=== PATIENT | male | born 1935 | race Caucasian/White ===

== ENCOUNTER → 2016-09-03 10:35 | Day surgery (SDC) | payer MEDICARE ==
[~2016-09-03 10:35] MED LIST: Buffered Lidocaine 1% SYR 3ML* 3 ML/SYR SYRINGE INTRADERM ONE; Bupivacaine 0.5% SDV PF* 30 ML VIAL ONE; Lidocaine 1% INJ* 10 MG/ML 30 ML SDV ONE; NS 0.9% 1000 ML* 1,000 ML IV SCH
[2016-09-03 13:26] VITALS: BP 140/71
--- NOTE | 2016-09-03 21:06 | OP ---
DATE OF OPERATION: 09/03/16 [facility] DATE OF : 35 SURGEON: Luis Alfredo Fajardo DPM FISHING TOOL OPERATOR: None. ANESTHESIOLOGIST: Dr. Gr ANESTHESIA: Local anesthesia. 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 OPERATIVE PROCEDURE: Amputation, third right toe. PATHOLOGY: Amputated third right toe and proximal wound cultures, aerobic and anaerobic. HEMOSTASIS: None. ESTIMATED BLOOD LOSS: Approximately 20 cc. INDICATIONS: The patient with chronic third right hammertoe with chronic ulceration with probing to bone and recent bone scan demonstrating finding consistent with osteomyelitis of the distal third right toe. The patient has numerous health concerns and amputation is advised at this time to limit the potential spread of systemic involvement in the minimized need or exposure to further intravenous antibiotics. DESCRIPTION OF PROCEDURE: The patient was brought to the operating room and left on the wheeled cart. He was prepped and draped in standard fashion. A 10 cc of 1:1 mixture of 1% lidocaine plain and 0.5% Marcaine plain were infiltrated at the base of the digit. After assuring adequate anesthesia, two semi-elliptical incisions were made on the circumference of the base of the third right toe and dissection was carried down to deep fascia and the base of the digit. The deep fascia and tendon structures were incised and a straight bone cutter was used to resect the digit. A small rongeur was used to resect any sharp rough areas. The area was flushed with copious amounts of normal sterile saline and proximal wound cultures aerobic and anaerobic were obtained. It should be noted there was no evidence of any significant devitalized or infectious tissue or purulence. The tissue was bleeding and pink and healthy appearing. A 4-0 Polysorb was used to reapproximate some of the wound and using 5-0 and 4-0 nylon, the skin was reapproximated and secured. The surgical site was dressed with Xeroform gauge and a light bulky sterile dressing consisting of 4x4 gauge, an ABD pad, Haley and Kerlix. Secured with Coban. He appeared to tolerate the procedure and anesthesia well. The patient was transported via cart to Recovery in satisfactory condition. It should be noted prior to applying the bandage, cap refill remained less than 5 seconds to the remaining digits of the right foot. [id number]/[facility] #: [id number] MTDD
== END | disposition home or self-care (01) ==
LOC: OREAST 10:35
PROVIDERS: ATTEND Podiatrist Foot Surgery
DX: M86.671 Other chronic osteomyelitis, right ankle and foot (principal); I70.209 Unspecified atherosclerosis of native arteries of extremities, unspecified extremity; I10 Essential (primary) hypertension; J43.9 Emphysema, unspecified; E11.42 Type 2 diabetes mellitus with diabetic polyneuropathy; Z79.4 Long term (current) use of insulin
CPT/HCPCS: 87070; 87073; 87205; 88305; 88311

== ENCOUNTER 2018-11-21 13:11 | Emergency (ER) | payer MEDICARE ==
--- OUTSIDE RECORDS SUMMARY | 2018-11-21 13:16 | XMS REPORT | Continuity of Care Document ---
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 Family History Date Family Member(s) Observation Comments General Heart Disease General Hypertension General Stroke Social History Type Date Description Comments Sex Unknown Lives With Spouse Cigarette Use Quit 25 Years Ago Tobacco Use Start: Unknown Never Smoked Cigars Tobacco Use Start: Unknown Never Smoked A Pipe Smoking Status Reviewed: 10/24/18 Never Smoked A Pipe Smokeless Tobacco Former Smokeless Tobacco User, Used Occasionally Smokeless Tobacco Quit 25 Years Ago ETOH Use Denies alcohol use Allergies, Adverse Reactions, Alerts Description No Known Drug Allergies Medications Medication Date Status Form Strength Qnty SIG Indications Ordering Provider Kinsey 10/21/ Active Tablets 5-325mg 20tab 1 tab Fatuma 2019 s by bessy Abdi M.DMariela q6 hours as needed pain Keflex 10/21/ Active Capsules 500mg 28cap take 1 Lalo 2019 s tab by Jackie mouth 4 MD times a day x 7 days until finishe d. Diflucan 11/24/ Active Tablets 100mg 14tab 1 every K13.21 [facility] 2015 day x Ruparelia, 14days. M.D. Amlodipine Besylate / Active Tablets 5mg Nicholas, MD Richard Hydrochlorothiazide / Active Capsules 12.5mg McClintic, 0000 Júnior Bhat MD Simvastatin / Active Tablets 20mg Nicholas, MD Richard Enalapril Maleate / Active Tablets 20mg Nicholas, MD Richard Allopurinol / Active Tablets 300mg Nicholas, MD Richard Sotalol HCL / Active Tablets 80mg Romanyshyn 0000 Jenny, RETAIL MERCHANDISER Albuterol Sulfate / Active Powder puff Unknown 0000 every 6 hours as needed Vicodin / Active Tablets 5-500mg 1 every Unknown 0000 4-6 hours as needed Advair Diskus / Active Aerosol 1 puff Unknown 0000 by mouth twice a day Furosemide / Active Tablets 1 by Unknown 0000 mouth every day Eliquis / Active Tablets 2.5mg 1 tab Unknown 0000 by mouth every 12 hours for 30 days Immunizations Description No Information Available Vital Signs Date Vital Result Comment 10/24/2018 1:17pm Height 72 inches 6'0" Heart Rate 72 /min Respiratory Rate 20 /min Body Temperature 97.4 F Pain Level 7 11/25/2015 2:11pm Height 72 inches 6'0" Weight 269.00 lb Heart Rate 80 /min BP Systolic Sitting 128 mmHg BP Diastolic Sitting 88 mmHg BMI (Body Mass Index) 36.5 kg/m2 Results Test Date Facility Test Result H/L Range Note Laboratory test 11/25/2015 [facility] Fungal Cult SEE RESULT [address] [place] [address] [phone] 1 SEE RESULT BELOW Name: DAVID BAXTER : [address]: Miguel Angel Salvador MD Acct: [id number] Unit: [id number] AGE: 80 Location: [facility] Re11/25/15 SEX: M Status: REG REF SPEC: [id number] JUAN DAVID: 11/25/15-[address]: Miguel Angel Salvador MD REQ: [id number] RECD: 11/25/15 STATUS: COMP _ SOURCE: [facility] SPDESC: ORDERED: Fungal - Other Procedure Result Reported Site Fungal Cult - Other Sources Final 12/23/15- 1049 ML Organism 1 BECKY PARAPSILOSIS * ML - MAIN LAB ([facility]) . END OF REPORT * ML=Testing performed at Main Lab DEPARTMENT OF PATHOLOGY, [address] [place] [address] Gigi Sandy M.D. Director [facility] # [id number] Procedures Date Code Description Status 01/13/2016 01051 Laparoscopy Cholecystectomy Completed 01/10/2016 29807 ECHO Transthorasic Realtime 2D W Doppler & Color Flow Hosp Completed 11/25/2015 28142 Injection Intralesional Up To And Including 7 Lesions Completed Encounters Type Date Location Provider Dx Diagnosis Office Visit 08/05/2016 [facility] Hardeep Stapleton M86.9 Osteomyelitis, 9:53a fox Boogie M.D. 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 circulatory system Office Visit 08/04/2016 9:53a [facility] Hardeep Stapleton M86.9 Osteomyelitis, fox Boogie M.D. 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 unspecified Hospitalists I50.9 Heart failure, unspecified E11.8 Type 2 diabetes mellitus with unspecified complications I10 Essential (primary) hypertension Office Visit 01/14/2016 [facility] Lili Guerrero, K81.9 Cholecystitis, 9:45a Assoc,pc N.P. unspecified Hospitalists I50.9 Heart failure, unspecified E11.8 Type 2 diabetes mellitus with unspecified complications I10 Essential (primary) hypertension Office Visit 01/13/2016 [facility] Lili Guerrero, K81.9 Cholecystitis, 9:44a Assoc,pc N.P. unspecified Hospitalists I50.9 Heart failure, unspecified E11.8 Type 2 diabetes mellitus with unspecified complications I10 Essential (primary) hypertension Office Visit 01/12/2016 [facility] Jose K81.9 Cholecystitis, 9:43a Assoc,pc Julian, N.P. unspecified Hospitalists I50.9 Heart failure, unspecified E11.8 Type 2 diabetes mellitus with unspecified complications I10 Essential (primary) hypertension Office Visit 01/11/2016 [facility] Angie K81.9 Cholecystitis, 9:43a Assoc,fox Hutton, DANAE unspecified Hospitalists I50.9 Heart failure, unspecified E11.8 Type 2 diabetes mellitus with unspecified complications I10 Essential (primary) hypertension Office Visit 01/10/2016 12:39p [place] Dorinda Sy R10.13 Epigastric pain Assoc,LINDA Santos Hospitalists R06.02 Shortness of breath Office Visit 01/10/2016 [place] Silviodaysibarbie GarciaMariela Z01.810 Encounter for 3:16p Cardiology Bharath Mcclure preprocedural cardiovascular examination K81.9 Cholecystitis, unspecified I25.10 [facility] heart disease of [place] coronary artery w/o ang pctrs I47.2 Ventricular tachycardia I48.0 Paroxysmal atrial fibrillation Office Visit 01/10/2016 [facility] K81.9 Cholecystitis, 9:42a Assoc,fox Hutton, RETAIL MERCHANDISER unspecified Hospitalists I50.9 Heart failure, unspecified E11.8 Type 2 diabetes mellitus with unspecified complications I10 Essential (primary) hypertension Office Visit 11/25/2015 2:15p [facility] K13.21 Leukoplakia of [facility] AT Bharath Salvador oral mucosa, Ronald including tongue Plan of Treatment Future Appointment(s):11/02/2018 1:45 pm - Fatuma Abdi M.D. at [facility]10/24/2018 - Lalo Mejia, [id number] Other fractures of lower end of left radius, initial encountFollow up:Follow up: Dr. Abdi in 1 week
--- OUTSIDE RECORDS SUMMARY | 2018-11-21 13:16 | XMS REPORT | Continuity of Care Document ---
:1935 External Reference #:[id number] Author Name Gill Hernandez Care Team Providers Name Role Phone Richard Peterson MD Primary Care Physician Unavailable Payers Date Identification Numbers Payment Provider Subscriber Effective: 2000 Policy Number: [id number] Medicare David Baxter PayID: [id number] [address] [place] [address] Policy Number: [id number] [facility] David Baxter PayID: [id number] [address] [place] [address] Advance Directives Description No Information Available Problems Date Description Provider Status Onset: 11/25/2015 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 Family History Date Family Member(s) Observation Comments General Heart Disease General Hypertension General Stroke Social History Type Date Description Comments Sex Unknown Lives With Spouse Occupation Retired Cigarette Use Quit 25 Years Ago Tobacco Use Start: Unknown Never Smoked Cigars Tobacco Use Start: Unknown Never Smoked A Pipe Smokeless Tobacco Former Smokeless Tobacco User, Used Occasionally Smokeless Tobacco Quit 25 Years Ago ETOH Use Denies alcohol use Tobacco Use Start: Unknown End: Patient is a former smoker Unknown Smoking Status Reviewed: 11/02/18 Patient is a former smoker Exercise Type/Frequency Exercises rarely Allergies, Adverse Reactions, Alerts Description No Known Drug Allergies Medications Medication Date Status Form Strength Qnty SIG Indications Ordering Provider [place] 10/21/ Active Tablets 5-325mg 20tab 1 tab Fatuma 2019 s by bessy Abdi M.D. q6 hours as needed pain Keflex 10/21/ Active Capsules 500mg 28cap take 1 Lalo 2019 s tab by Jackie, mouth 4 MD times a day x 7 days until finishe d. Amlodipine Besylate / Active Tablets 5mg Nicholas, 0000 MD Richard Hydrochlorothiazide / Active Capsules 12.5mg McClintic, 0000 Júnior Bhat MD Simvastatin / Active Tablets 20mg Nicholas, 0000 MD Richard Enalapril Maleate / Active Tablets 20mg Nicholas, 0000 MD Richard Allopurinol / Active Tablets 300mg Nicholas, 0000 MD Richard Sotalol HCL / Active Tablets 80mg Romanyshyn 0000 Jenny NP Albuterol Sulfate / Active Powder puff Unknown 0000 every 6 hours as needed Advair Diskus / Active Aerosol 1 puff Unknown 0000 by mouth twice a day Furosemide / Active Tablets 1 by Unknown 0000 mouth every day Eliquis / Active Tablets 2.5mg 1 tab Unknown 0000 by mouth every 12 hours for 30 days Diflucan 11/24/ Hx Tablets 100mg 14tab 1 every K13.21 Miguel Angel 2015 - day x Ruparelia, days. M.D. 2019 Vicodin / Hx Tablets 5-500mg 1 every Unknown 0000 - 4-6 2018 as needed Immunizations Description No Information Available Vital Signs Date Vital Result Comment 11/02/2018 2:01pm Height 72 inches 6'0" Weight 183.00 lb BP Systolic 122 mmHg BP Diastolic 84 mmHg Body Temperature 96.8 F Pain Level 5 BMI (Body Mass Index) 24.8 kg/m2 10/24/2018 1:17pm Height 72 inches 6'0" Heart Rate 72 /min Respiratory Rate 20 /min Body Temperature 97.4 F Pain Level 7 11/25/2015 2:11pm Height 72 inches 6'0" Weight 269.00 lb Heart Rate 80 /min BP Systolic Sitting 128 mmHg BP Diastolic Sitting 88 mmHg BMI (Body Mass Index) 36.5 kg/m2 Results Test Date Facility Test Result H/L Range Note Laboratory test 11/25/2015 [facility] Fungal Cult SEE RESULT [address] [place] [address] [phone] 1 SEE RESULT BELOW Name: DAVID BAXTER : [address]: Miguel Angel Salvador MD Acct: [id number] Unit: [id number] AGE: 80 Location: [facility] Re11/25/15 SEX: M Status: REG REF SPEC: [id number] JUAN DAVID: 11/25/15-[address] [facility] [address]: Miguel Angel Salvador MD REQ: [id number] RECD: 11/25/15 STATUS: COMP _ SOURCE: [facility] SPDESC: ORDERED: Fungal - Other Procedure Result Reported Site Fungal Cult - Other Sources Final 12/23/15- 1049 ML Organism 1 BECKY PARAPSILOSIS * ML - MAIN LAB ([facility]) . END OF REPORT * ML=Testing performed at Main Lab DEPARTMENT OF PATHOLOGY, [address] [place] [address] Gigi Sandy M.D. Director [facility] # [id number] Procedures Date Code Description Status 10/24/2018 78312 Short Arm Splint Application Completed 10/21/2018 48270 FX Radial Shaft Open TX W/Wo Fixation Completed 10/21/2018 49998 FX Radial Shaft Open TX W/Wo Fixation Completed 01/13/2016 08878 Laparoscopy Cholecystectomy Completed 01/10/2016 27486 ECHO Transthorasic Realtime 2D W Doppler & Color Flow Hosp Completed 11/25/2015 51303 Injection Intralesional Up To And Including 7 Lesions Completed Encounters Type Date Location Provider Dx Diagnosis Office Visit 08/05/2016 [facility] Hardeep Stapleton, M86.9 Osteomyelitis, 9:53a fox Boogie M.D. 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 circulatory system Office Visit 08/04/2016 9:53a [facility] Sunny Edwards86.9 Osteomyelitis, Assocfox M.D. 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, unspecified Office Visit 08/03/2016 [facility] Rashaun Webster M86.9 Osteomyelitis, 9:51a Assoc,fox Quinteros, unspecified Hospitalists Bharath,FACP R19.7 Diarrhea, unspecified R13.10 Dysphagia, unspecified Office Visit 08/03/2016 7:00a Surgical Shyannenora Luna L97.514 Non-prs chronic [facility] Goyal MD ulcer oth prt right foot w necrosis of bone L03.031 Cellulitis of right toe I73.9 Peripheral vascular disease, unspecified Office Visit 08/02/2016 [facility] Rashaun Webster M86.9 Osteomyelitis, 9:49a Assoc,fox Quinteros, unspecified Hospitalists M.DMariela,FACP M86.9 Osteomyelitis, unspecified R19.7 Diarrhea, unspecified R19.7 Diarrhea, unspecified 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 N17.9 Acute kidney 9:48a Assocfox M.D. 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 unspecified Hospitalists I50.9 Heart failure, unspecified E11.8 Type 2 diabetes mellitus with unspecified complications I10 Essential (primary) hypertension Office Visit 01/14/2016 [facility] Lili Guerrero, K81.9 Cholecystitis, 9:45a Assoc,pc N.P. unspecified Hospitalists I50.9 Heart failure, unspecified E11.8 Type 2 diabetes mellitus with unspecified complications I10 Essential (primary) hypertension Office Visit 01/13/2016 [place] Dorinda Guerrero, K81.9 Cholecystitis, 9:44a Assoc,pc N.P. unspecified Hospitalists I50.9 Heart failure, unspecified E11.8 Type 2 diabetes mellitus with unspecified complications I10 Essential (primary) hypertension Office Visit 01/12/2016 [facility] Jose K81.9 Cholecystitis, 9:43a Assoc,pc Julian, N.P. unspecified Hospitalists I50.9 Heart failure, unspecified E11.8 Type 2 diabetes mellitus with unspecified complications I10 Essential (primary) hypertension Office Visit 01/11/2016 [facility] K81.9 Cholecystitis, 9:43a Assoc,pc Anni, DANAE unspecified Hospitalists I50.9 Heart failure, unspecified E11.8 Type 2 diabetes mellitus with unspecified complications I10 Essential (primary) hypertension Office Visit 01/10/2016 12:39p [facility] Kerrie R10.13 Epigastric pain Assoc,fox Casper, LINDA Hospitalists R06.02 Shortness of breath Office Visit 01/10/2016 [place] Judy Hdz Z01.810 Encounter for 3:16p Cardiology Bharath Mcclure preprocedural cardiovascular examination K81.9 Cholecystitis, unspecified I25.10 Athscl heart disease of [place] coronary artery w/o ang pctrs I47.2 Ventricular tachycardia I48.0 Paroxysmal atrial fibrillation Office Visit 01/10/2016 [facility] Angie K81.9 Cholecystitis, 9:42a Assoc,fox Hutton NP unspecified Hospitalists I50.9 Heart failure, unspecified E11.8 Type 2 diabetes mellitus with unspecified complications I10 Essential (primary) hypertension Office Visit 11/25/2015 2:15p [facility] K13.21 Leukoplakia of [place] AT Bharath Salvador oral mucosa, [place] including tongue Plan of Treatment Future Appointment(s):11/09/2018 1:15 pm - Fatuma Abdi M.D. at [facility] [place]/02/2018 - Fatuma Abdi M.D.S52.592B Other fractures of lower end of left radius, initial encountNew Xrays:Wrist Left 2 VWS, Ordered: Follow up:Follow up: 1 week
--- OUTSIDE RECORDS SUMMARY | 2018-11-21 13:16 | XMS REPORT | Continuity of Care Document ---
:1935 External Reference #:[id number] Author Name EnrriqueHayeslizzettealexandermariandavid Care Team Providers Name Role Phone Richard Peterson MD Primary Care Physician Unavailable Payers Date Identification Numbers Payment Provider Subscriber Effective: 2000 Policy Number: [id number] Medicare David Baxter PayID: [id number] [address] [place] [address] Policy Number: [id number] [facility] David Baxter PayID: [id number] [address] [place] [address] Advance Directives Description No Information Available Problems [...] a former smoker Unknown Smoking Status Reviewed: 11/09/18 Patient is a former smoker Exercise Type/Frequency Exercises rarely Allergies, Adverse Reactions, Alerts Description No Known Drug Allergies Medications Medication Date Status Form Strength Qnty SIG Indications Ordering Provider Amlodipine Besylate Active Tablets 5mg 1 tab Nicholas, /0000 by MD Richard mouth once daily Simvastatin Active Tablets 20mg 1 tab Nicholas, /0000 by MD Richard mouth once daily Allopurinol Active Tablets 300mg 1 tab Nicholas, /0000 by MD Richard mouth once daily Sotalol HCL Active Tablets 80mg 1 tab Romanyshyn /0000 by , DANAE Alvarado mouth twice daily Albuterol Sulfate Active Powder puff Unknown /0000 every 6 hours as needed Eliquis Active Tablets 2.5mg 1 tab Unknown /0000 by mouth every 12 hours Metoprolol Succinate Active Tablets 50mg 1 tab Nicholas, ER /0000 ER 24HR by MD Richard mouth twice daily [place] 10/21 Hx Tablets 5-325mg 20tab 1 tab Fatuma s by Trinidad - mouth M.D. 11/08 q6 hours as needed pain Keflex 10/21 Hx Capsules 500mg 28cap take 1 Lalo s tab by Mikhail Mejia 4 MD 11/08 times day x 7 days until finishe d. Diflucan 11/24 Hx Tablets 100mg 14tab 1 every K13.21 Miguel Angel s day x [place], - 14days. M.D. 11/02 Hydrochlorothiazide Hx Capsules 12.5mg [place], /0000 Júnior Bhat MD 11/08 Enalapril Maleate Hx Tablets 20mg Nicholas, /0000 MD Richard - 11/08 Vicodin Hx Tablets 5-500mg 1 every Unknown /0000 4-6 - hours 11/02 needed Advair Diskus Hx Aerosol 1 puff Unknown /0000 by - mouth 11/08 twice day Furosemide Hx Tablets 1 by Unknown /0000 mouth - every Immunizations Description No Information Available Vital Signs Date Vital Result Comment 11/09/2018 1:14pm Height 72 inches 6'0" Weight 183.00 lb Heart Rate 74 /min BP Systolic Sitting 110 mmHg BP Diastolic Sitting 86 mmHg Respiratory Rate 18 /min Pain Level 0 BMI (Body Mass Index) 24.8 kg/m2 11/02/2018 2:01pm Height 72 inches 6'0" Weight [...] Result H/L Range Note Laboratory test 11/25/2015 [facility] Fungal Cult SEE RESULT [address] [place] [address] [phone] SEE RESULT BELOW Name: DAVID BAXTER : [address]: Miguel Angel Salvador MD Acct: [id number] Unit: [id number] AGE: 80 Location: [facility] Re11/25/15 SEX: M Status: REG REF SPEC: [id number] JUAN DAVID: 11/25/15-[address] [facility] [address]: Miguel Angel Salvador MD REQ: [id number] RECD: 11/25/15 STATUS: COMP _ SOURCE: AVA EPPS SPDESC: ORDERED: Fungal - Other Procedure Result Reported Site Fungal Cult - Other Sources Final 12/23/15- 1049 ML Organism 1 BECKY PARAPSILOSIS * ML - MAIN LAB (PSC1) . END OF REPORT * ML=Testing performed at Main Lab DEPARTMENT OF PATHOLOGY, [address] [place] [address] Gigi Sandy M.D. Director [facility] # [id number] Procedures Date Code Description Status 10/24/2018 80401 Short Arm Splint Application Completed 10/21/2018 32271 FX Radial Shaft Open TX W/Wo Fixation Completed 10/21/2018 81757 FX Radial Shaft Open TX W/Wo Fixation Completed 01/13/2016 54707 Laparoscopy Cholecystectomy Completed 01/10/2016 31922 ECHO Transthorasic Realtime 2D W Doppler & Color Flow Hosp Completed 11/25/2015 33671 Injection Intralesional Up To And Including 7 Lesions Completed Encounters Type Date Location Provider Dx Diagnosis Office Visit 08/05/2016 [facility] Katty Edwards.9 Osteomyelitis, 9:53a Assocfox M.D. 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 unspecified Hospitalists I50.9 Heart failure, unspecified E11.8 Type 2 diabetes mellitus with unspecified complications I10 Essential (primary) hypertension Office Visit 01/14/2016 [facility] Lili Guerrero, K81.9 Cholecystitis, 9:45a Assoc,pc N.P. unspecified Hospitalists I50.9 Heart failure, unspecified E11.8 Type 2 diabetes mellitus with unspecified complications I10 Essential (primary) hypertension Office Visit 01/13/2016 [facility] Lili Guerrero, K81.9 Cholecystitis, 9:44a Assoc,pc N.P. unspecified Hospitalists I50.9 Heart failure, unspecified E11.8 Type 2 diabetes mellitus with unspecified complications I10 Essential (primary) hypertension Office Visit 01/12/2016 [facility] Jose K81.9 Cholecystitis, 9:43a Assoc,fox Jordan, N.P. unspecified Hospitalists I50.9 Heart failure, unspecified E11.8 Type 2 diabetes mellitus with unspecified complications I10 Essential (primary) hypertension Office Visit 01/11/2016 [facility] K81.9 Cholecystitis, 9:43a Assoc,fox Hutton, SENIOR COMPLIANCE ANALYST unspecified Hospitalists I50.9 Heart failure, unspecified E11.8 Type 2 diabetes mellitus with unspecified complications I10 Essential (primary) hypertension Office Visit 01/10/2016 12:39p [facility] Kerrie R10.13 Epigastric pain Assoc,LINDA Santos Hospitalists R06.02 Shortness of breath Office Visit 01/10/2016 [place] Judy Hdz Z01.810 Encounter for 3:16p Cardiology Bharath Mcclure preprocedural cardiovascular examination K81.9 Cholecystitis, unspecified I25.10 [facility] heart disease of [place] coronary artery w/o ang pctrs I47.2 Ventricular tachycardia I48.0 Paroxysmal atrial fibrillation Office Visit 01/10/2016 [facility] K81.9 Cholecystitis, 9:42a Assoc,fox Hutton, SENIOR COMPLIANCE ANALYST unspecified Hospitalists I50.9 Heart failure, unspecified E11.8 Type 2 diabetes mellitus with unspecified complications I10 Essential (primary) hypertension Office Visit 11/25/2015 2:15p [facility] 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 at [facility]11/09/2018 - Fatuma Abdi M.D.S52.592D Other fractures of lower end of left radius, subsequent encoFollow up:Follow up: 4 weeks
[2018-11-21 13:35] VITALS: BP 103/63
--- NOTE | 2018-11-21 13:58 | UC ---
Dental HPI - HPI Summary HPI Summary: 83-year-old male with history of head and neck cancer presents with and sone complaining of onset of severe jaw pain yesterday. He is a patient of Dr. Juan Schaefer at the [facility] who treated him for the cancer which included removal of his right mandible with reconstruction (2015) as well as radiation therapy which she completed in July 2017. Patient states that he has had a history of bone infections in the jaw in the past and he is scheduled to have a biopsy performed by Dr. Colorado at [facility] on November 28, 2018. States he did take some acetaminophen this morning which did improve the pain. His son states that he has noted some progressively worsening redness and swelling of the chin, right jaw, and neck over the past couple of days. He does have a open wound on the chin but they are concerned is from a screw that may have come loose and is migrating its way out. Patient denies fever, chills, or trismus. - History of Current Complaint Chief Complaint: Lakesha Stated Complaint: JAW PAIN Time Seen by Provider: 11/21/18 13:53 Hx Obtained From: Patient Pain Intensity: 6 - Allergies/Home Medications Allergies/Adverse Reactions: Allergies Allergy/AdvReac Type Severity Reaction Status Date / Time No Known Allergies Allergy Verified 11/21/18 13:35 Home Medications: Home Medications Acetaminophen [Tylenol] 650 mg PO DAILY WITH MEAL 11/21/18 [History Confirmed ] PMH/Surg Hx/FS Hx/Imm Hx Endocrine History: Diabetes, Dyslipidemia Cardiovascular History: Cardiac Disease, Hypertension, Congestive Heart Failure , Atrial Fibrillation Cancer History: Other - Head and neck cancer s/p radiation Tx (last treatment ) - Surgical History Surgical History: Yes Surgery Procedure, Year, and Place: 05/2016 TURP -[facility] [place]. 01/2016 R Mandiblectomy. 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 2012 DEFIBRILLATOR INSERTED, [place]. 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 2010 LASER SURGER OF LEFT PALATE, OFFICE. SKIN CANCER BIOPSY RIGHT FOREARM, OFFICE. BIOPSY RIGHT LEG, OFFICE. DEPUTYRENS CONTRACTURE BILATERAL HANDS, [facility] [place] AND [place]. cholecystectomy, [facility] - Family History Known Family History: Positive: None, Unknown, Cardiac Disease, Hypertension, Diabetes - Social History Occupation: Retired Lives: With Family Alcohol Use: Weekly Alcohol Amount: did have 4 beers on Wednesday after 2 years dry Substance Use Type: None Smoking Status (MU): Former Smoker Have You Smoked in the Last Year: No When Did the Patient Quit Smoking/Using Tobacco: QUIT 35 YEARS AGO Household Exposure Type: Cigarettes - Immunization History Most Recent Influenza Vaccination: fall 2015 Most Recent Tetanus Shot: Up to date Most Recent Pneumonia Vaccination: 15 yrs ago Review of Systems All Other Systems Reviewed And Are Negative: Yes Constitutional: Negative: Fever, Chills Eyes: Negative: Drainage, Eye Redness ENT: Positive: Other - See HPI Respiratory: Negative: Shortness Of Breath, Cough Cardiovascular: Negative: Palpitations, Chest Pain Gastrointestinal: Negative: Abdominal Pain, Vomiting, Nausea Genitourinary: Positive: Negative Musculoskeletal: Positive: Negative Neurological: Positive: Negative Physical Exam - Summary Physical Exam Summary: GENERAL APPEARANCE: Alert, cooperative, chronically ill-appearing older adult male who appears to be in no acute distress. HEAD: Erythema and edema noted to the chin, right mandible, and right anterior neck with increased warmth. Small crusted lesion noted to chin with purulent drainage. EYES: Conjunctiva clear. No drainage. EARS: External auditory canals and tympanic membranes clear, hearing grossly intact. NOSE: No nasal discharge. THROAT: Pharynx normal. Uvula midline. Dry geographic tongue. Dry mucous membranes. Poor dentition with multiple missing teeth and teeth in various degrees of decay. No trismus. NECK: Neck supple. No lymphadenopathy noted. CARDIAC: Normal S1 and S2. No S3, S4 or murmurs. Rhythm is regular. There is no peripheral edema, cyanosis or pallor. Extremities are warm and well perfused. Capillary refill is less than 2 seconds. Peripheral pulses intact. LUNGS: Clear to auscultation without rales, rhonchi, wheezing or diminished breath sounds. ABDOMEN: Positive bowel sounds. Soft, nondistended, nontender. No guarding or rebound. No masses or hepatosplenomegally. MUSKULOSKELETAL: ROM intact to all extremities. No joint erythema or tenderness. Normal muscular development. Normal gait. Triage Information Reviewed: Yes Vital Signs: Initial Vital Signs Temp 98.4 F 11/21/18 13:29 Pulse 105 11/21/18 13:29 Resp 20 11/21/18 13:29 BP 103/63 11/21/18 13:29 Pulse Ox 97 11/21/18 13:29 Vital Signs Reviewed: Yes Dental Complaint Course/Dx - Course Course Of Treatment: 83-year-old male with history of head and neck cancer presents with and sone complaining of onset of severe jaw pain yesterday. He is a patient of Dr. Juan Schaefer at the [facility] who treated him for the cancer which included removal of his right mandible with reconstruction (2015) as well as radiation therapy which she completed in July 2017. Patient states that he has had a history of bone infections in the jaw in the past and he is scheduled to have a biopsy performed by Dr. Colorado at [facility] on November 28, 2018. States he did take some acetaminophen this morning which did improve the pain. His son states that he has noted some progressively worsening redness and swelling of the chin, right jaw, and neck over the past couple of days. He does have a open wound on the chin but they are concerned is from a screw that may have come loose and is migrating its way out. Patient denies fever, chills, or trismus. Afebrile. Mildly tachycardic otherwise vital signs are stable. Exam was remarkable for Erythema and edema noted to the chin, right mandible, and right anterior neck with increased warmth. Small crusted lesion noted to chin with purulent drainage. A culture was obtained and sent. I did not appreciate any cervical lymphadenopathy. No trismus. Patient had extremely poor dentition with multiple teeth in various degrees of decay. I did attempt to contact Dr. Schaefer at the [facility] for consultation however he was in surgery and not able to speak at this time. I did have a conversation with his RN who will be contacting Dr. Schaefer regarding my findings. I also attempted to contact Dr. Colorado to make him aware that the patient was going to be evaluated in the emergency room however he was not available at this time either. With his past history of osteomyelitis of the jaw I am recommending that he be further evaluated in the emergency room at this time. Patient is agreeable to this and elects to transfer via private vehicle with his son driving. - Differential Dx/Diagnosis Provider Diagnosis: Facial cellulitis Discharge - Sign-Out/Discharge Documenting (check all that apply): Patient Departure All imaging exams completed and their final reports reviewed: No Studies - Discharge Plan Condition: Stable Disposition: HOME-RECOMMEND TO ED Referrals: Richard Peterson MD [Primary Care Provider] - Additional Instructions: You appear to have an infection of the face however with your history I am concerned that you need further evaluation to assess the severity of the infection which cannot be completed at this location. I did contact Dr. Schaefer's office however he was in surgery and was not available for consult at this time. I am recommending that you go directly to the [facility] emergency room for further evaluation. - Billing Disposition and Condition Condition: STABLE Disposition: Home-Recommend to ED - Attestation Statements Provider Attestation: I was available for consult. This patient was seen by the [facility]. The patient was not presented to, seen by, or examined by me. -Claudine
== END 2018-11-21 14:50 | disposition home health service (06) ==
LOC: UCEAST 13:11
DX: L03.211 Cellulitis of face (principal); B95.61 Methicillin susceptible Staphylococcus aureus infection as the cause of diseases classified elsewhere; R68.84 Jaw pain; K02.9 Dental caries, unspecified; R00.0 Tachycardia, unspecified; E11.9 Type 2 diabetes mellitus without complications; E78.5 Hyperlipidemia, unspecified; I11.0 Hypertensive heart disease with heart failure; I50.9 Heart failure, unspecified; I48.91 Unspecified atrial fibrillation; Z85.819 Personal history of malignant neoplasm of unspecified site of lip, oral cavity, and pharynx; Z90.49 Acquired absence of other specified parts of digestive tract; Z89.421 Acquired absence of other right toe(s); Z87.891 Personal history of nicotine dependence
CPT/HCPCS: 87070; 87077; 87186; 87205; 87640; 87641; 99212; G0463

== ENCOUNTER 2018-11-21 15:20 | Inpatient (IN) | payer MEDICARE ==
[2018-11-21 17:03] LABS: Hematocrit 38 % (36-46); Hemoglobin 12.6 g/dL (14.0-18.0); Mean Corpuscular HGB Conc 33 g/dL (31-36); Mean Corpuscular Hemoglobin 31 pg (27-31); Mean Corpuscular Volume 94 fL (80-94); Mean Platelet Volume 10.4 fL (7.4-10.4); Platelet Count 139 10^3/uL (150-450); Red Blood Count 4.03 10^6 /uL (4.18-5.48); Red Cell Distribution Width 16 % (10.5-15)
[2018-11-21 17:08] LABS: Albumin 3.8 g/dL (3.2-5.2); Albumin/Globulin Ratio 1.1 (1-3); BUN/Creatinine Ratio 22.6 (8-20); Calcium 9.4 mg/dL (8.6-10.3); EGFR African American 93.9 (>60); EGFR Non-African American 77.6 (>60); Globulin 3.4 g/dL (2-4); Potassium 3.7 mmol/L (3.5-5.0); Total Bilirubin 1.1 mg/dL (0.2-1.0); Total Protein 7.2 g/dL (6.4-8.9)
--- NOTE | 2018-11-21 17:24 | ED ---
Throat Pain/Nasal Congestion - HPI Summary HPI Summary: This pt is an 83 y/o male, with hx of head and neck CA, presenting to [facility] referred by [facility] for jaw pain, redness, and swelling since yesterday. Pt reports he had right mandible reconstruction done in [address] Jonathan Schaefer in [facility]. Pt states his jaw began to "bother" him yesterday and currently his whole face is painful. He notes redness on his neck is new. He currently rates his pain 6/10 in severity. Denies fever. Pt is concerned a screw is becoming loose. Family member reports pt has had infections in his toes in the past but has not had an infection in the jaw. - History of Current Complaint Chief Complaint: EDGeneral Time Seen by Provider: 11/21/18 17:14 Hx Obtained From: Patient Onset/Duration: Lasting Days - 1, Still Present Severity: Severe Associated Signs And Symptoms: Negative: FB Sensation, Hoarseness, Sinus Discomfort, Nasal Discharge Cough: None Related History: Other (Noted In Comments) - s/p right mandible reconstruction in 2016 - Allergies/Home Medications Allergies/Adverse Reactions: Allergies Allergy/AdvReac Type Severity Reaction Status Date / Time No Known Allergies Allergy Verified 11/21/18 13:35 PMH/Surg Hx/FS Hx/Imm Hx Endocrine/Hematology History: Reports: 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 Cardiovascular History: Reports: Hx Auto Implanted Cardiovert Defib, Hx Cardiomegaly - SLIGHTLY ENLARGED, Hx Congestive Heart Failure, Hx Coronary Artery Disease, Hx Hypercholesterolemia, Hx Hypertension, Hx Pacemaker/ICD - ICD , Hx Peripheral Vascular Disease, Other Cardiovascular Problems/Disorders - 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, Hx SVT, paroxysmal A fib Respiratory History: Reports: Hx Chronic Obstructive Pulmonary Disease (COPD), Hx Sleep Apnea, Other Respiratory Problems/Disorders - COPD History: Reports: Hx Benign Prostatic Hyperplasia - TURP 06/08/16, Other Problems/Disorders - Hx Urinary retention Denies: Hx Dialysis, Hx Renal Disease Musculoskeletal History: Reports: Hx Arthritis - BILATERAL KNEES, Hx Scoliosis, Other Musculoskeletal History - CURVATURE OF BACK Sensory History: Reports: Hx Cataracts - BILATERAL- REMOVED, Hx Contacts or Glasses - at home, doesn't use them any more Denies: Hx Hearing Aid Opthamlomology History: Reports: Hx Cataracts - BILATERAL- REMOVED, Hx Contacts or Glasses - at home, doesn't use them any more - Cancer History Cancer Type, Location and Year: Oral cancer- head and neck, Current. skin cancer Hx Chemotherapy: No - RADIATION - Surgical History Surgery Procedure, Year, and Place: 05/2016 TURP -[facility]. 01/2016 R Mandiblectomy. 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 2012 DEFIBRILLATOR INSERTED, [place]. 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 2010 LASER SURGER OF LEFT PALATE, OFFICE. SKIN CANCER BIOPSY RIGHT FOREARM, OFFICE. BIOPSY RIGHT LEG, OFFICE. DEPUTYRENS CONTRACTURE BILATERAL HANDS, [facility] AND [place]. cholecystectomy, CATARACT SURGERY - [facility] Hx Anesthesia Reactions: No Infectious Disease History: No Infectious Disease History: Reports: Hx Shingles - 30 years ago Denies: Traveled Outside the [place] in Last 30 Days - Family History Known Family History: Positive: Cardiac Disease, Hypertension, Diabetes - Social History Alcohol Use: Weekly Alcohol Amount: did have 4 beers on Wednesday after 2 years dry Hx Substance Use: No Substance Use Type: Reports: None Hx Tobacco Use: Yes Smoking Status (MU): Former Smoker Have You Smoked in the Last Year: No Review of Systems Negative: Fever ENT: Other - POS: jaw pain, redness and swelling, face pain Gastrointestinal: Negative Neurological: Negative All Other Systems Reviewed And Are Negative: Yes Physical Exam - Summary Physical Exam Summary: Appearance: Well-appearing, Well-nourished, lying in bed comfortably Skin: Warm, dry, no obvious rash Eyes: sclera anicteric, no conjunctival pallor ENT: postoperative change of the jaw with apparently new swelling and redness. There is purulent drainage at the mentum of the jaw. Swelling adjacent to the neck on the left side with erythema. Neck: Supple, nontender Respiratory: Clear to auscultation, no signs of respiratory distress Cardiovascular: Normal S1, S2. No murmurs. Normal distal pulses in tibial and radial bilaterally. Abdomen: Soft, nontender, normal active bowel sounds present Musculoskeletal: Normal, Strength/ROM Intact Neurological: A&Ox3, awake and alert, mentation is normal, speech is fluent and appropriate Psychiatric: affect is normal, does not appear anxious or depressed Triage Information Reviewed: Yes Vital Signs On Initial Exam: Initial Vitals Temp Pulse Resp BP Pulse Ox 98.6 F 88 17 114/71 97 11/21/18 15:23 11/21/18 15:23 11/21/18 15:23 11/21/18 15:23 11/21/18 15:23 Vital Signs Reviewed: Yes Diagnostics - Vital Signs Vital Signs Temp Pulse Resp BP Pulse Ox 11/21/18 17:18 98.9 F 11/21/18 15:23 98.6 F 88 17 114/71 97 - Laboratory Lab Results: Lab Results 11/21/18 11/21/18 11/21/18 Range/Units 16:42 16:42 16:42 WBC 13.0 H (3.5-10.8) 10^3/uL RBC 4.03 L (4.18-5.48) 10^6 /uL Hgb 12.6 L (14.0-18.0) g/dL Hct 38 (36-46) % MCV 94 (80-94) fL MCH 31 (27-31) pg MCHC 33 (31-36) g/dL RDW 16 H (10.5-15) % Plt Count 139 L (150-450) 10^3/uL MPV 10.4 (7.4-10.4) fL Neut % (Auto) Pending Lymph % (Auto) Pending Bryan % (Auto) Pending Eos % (Auto) Pending Baso % (Auto) Pending Absolute Neuts (auto) Pending Absolute Lymphs (auto) Pending Absolute Monos (auto) Pending Absolute Eos (auto) Pending Absolute Basos (auto) Pending Absolute Nucleated RBC Pending Nucleated RBC % Pending Sodium 135 (135-145) mmol/L Potassium 3.7 (3.5-5.0) mmol/L Chloride 102 (101-111) mmol/L Carbon Dioxide 27 (22-32) mmol/L Anion Gap 6 (2-11) mmol/L BUN 21 (6-24) mg/dL Creatinine 0.93 (0.67-1.17) mg/dL Est GFR ( Amer) 93.9 (>60) Est GFR (Non-Af Amer) 77.6 (>60) BUN/Creatinine Ratio 22.6 H (8-20) Glucose 127 H (70-100) mg/dL Lactic Acid 1.5 (0.5-2.0) mmol/L Calcium 9.4 (8.6-10.3) mg/dL Total Bilirubin 1.10 H (0.2-1.0) mg/dL AST 15 (13-39) U/L ALT 8 (7-52) U/L Alkaline Phosphatase 72 (34-104) U/L C-Reactive Protein Pending Total Protein 7.2 (6.4-8.9) g/dL Albumin 3.8 (3.2-5.2) g/dL Globulin 3.4 (2-4) g/dL Albumin/Globulin Ratio 1.1 (1-3) Result Diagrams: 11/22/18 06:04 11/22/18 06:04 Lab Statement: Any lab studies that have been ordered have been reviewed, and results considered in the medical decision making process. - CT Neck CT CT Interpretation Completed By: Radiologist Summary of CT Findings: IMPRESSION: 1. Chronic unchanged erosive changes along the medial surgical margin of the parasymphyseal mandible, which could reflect locally recurrent neoplasm versus osteonecrosis. 2. New subcutaneous soft tissue stranding and thickening overlying the right mandibular hardware. Findings could reflect cellulitis. No adjacent drainable fluid collection identified. 3. Multiple nodular opacities in the partially visualized right lung, largest measuring 0.7 cm. Nonspecific ground glass attenuation of the partially visualized lingula. Correlate with dedicated chest imaging. Dr. Kolb has reviewed this report. EENT Course/Dx - Course Assessment/Plan: Pt is an 83 y/o male, with hx of head and neck CA, who presents to the ED c/o jaw pain, redness, and swelling since yesterday. Pt reports he had right mandible reconstruction done in [address] Jonathan Schaefer in [facility]. Neck CT shows 1. Chronic unchanged erosive changes along the medial surgical margin of the parasymphyseal mandible, which could reflect locally recurrent neoplasm versus osteonecrosis. In the ED course the pt was given Vancomycin, Cefepime, Percocet. 2. New subcutaneous soft tissue stranding and thickening overlying the right mandibular hardware. Findings could reflect cellulitis. No adjacent drainable fluid collection identified. 3. Multiple nodular opacities in the partially visualized right lung, largest measuring 0.7 cm. Nonspecific ground glass attenuation of the partially visualized lingula. Correlate with dedicated chest imaging. Discussed the case with Dr. Jonathan Schaefer, surgical oncologist, from [facility]. Discussed with Dr. Paul, hospitalist, who accepted the pt for admission. - Differential Diagnoses Differential Diagnoses: Cellulitis, Odontogenic Pain, Other - osteomyelitis of mandible - Diagnoses Provider Diagnoses: Head and neck cancer, Acute osteomyelitis of mandible - Provider Notifications Discussed Care Of Patient With: Dr. Juan Schaefer Time Discussed With Above Provider: 17:57 Instructed by Provider To: Other - Discussed pt's case wtih Dr. Schaefer, from [facility]. [19:16] Discussed with Dr. Paul, hospitalist, who accepted the pt for admission. Discharge - Sign-Out/Discharge Documenting (check all that apply): Patient Departure - Admit to [facility] All imaging exams completed and their final reports reviewed: Yes Patient Received Moderate/Deep Sedation with Procedure: No - Discharge Plan Condition: Stable Disposition: ADMITTED TO [facility] - Billing Disposition and Condition Condition: STABLE Disposition: Admitted to [facility] - Attestation Statements Document Initiated by Rositae: Yes Documenting Scribe: Allyson Perkins Provider For Whom Scribe is Documenting (Include Credential): Juaquin Kolb MD Scribe Attestation: Allyson Parry, scribed for Juaquin Kolb MD on 11/22/18 at 1415. Scribe Documentation Reviewed: Yes Provider Attestation: The documentation as recorded by the Allyson fong accurately reflects the service I personally performed and the decisions made by Juaquin jaimes MD Status of Scribe Document: Viewed
[2018-11-21 17:34] LABS: C Reactive Protein 90.76 mg/L (<8.01)
[2018-11-21 17:37] LABS: ABS Basophils 0 10^3/ul (0-0.2); ABS Eosinophils 0 10^3/ul (0-0.6); ABS Lymphocytes 0.6 10^3/ul (1.0-4.8); ABS Monocytes 1.9 10^3/ul (0-0.8); ABS Neutrophils 10.5 10^3/ul (1.5-7.7); ABS Nucleated RBC 0 10^3/ul; Eosinophil % 0.3 %; Lymphocyte % 4.3 %; Nucleated Red Blood Cells % 0
[2018-11-21] MEDS ORDERED: Iohexol 300* (CONTRAST) 10 ML SDV IV ONE (17:44)
[2018-11-21] MEDS ORDERED: Cefepime(*) 1 GM in NS 0.9% 50 ML* 50 ML IVPB ONE (18:04)
[2018-11-21] MEDS ORDERED: Vancomycin(*) 1,500 MG in NS 0.9% 250 ML* 250 ML IVPB ONE (18:04)
[2018-11-21] MEDS ORDERED: Cefepime 1 GM in Dextrose(*) 1 GM/50 ML BAG IV ONE (18:15)
[2018-11-21] MEDS ORDERED: oxyCODONE/Acetamin 5/325 MG* TAB PO ONE (19:30)
[2018-11-21] MEDS ORDERED: Albuterol/Ipratropium NEB.SOL* Albuterol 2.5 MG/Ipratropium 0.5 MG 3 ML INH PRN (19:53)
[2018-11-21] MEDS ORDERED: Ondansetron INJ* 2 MG/ML VIAL IV PRN (19:56)
[2018-11-21] MEDS ORDERED: Vancomycin per Pharmacy* NOTE FOLLOW UP SCH (20:00)
[2018-11-21] MEDS ORDERED: Dextrose 50% Syringe 50 ML* 25 GM/50 ML SYRINGE IV PUSH PRN (20:12)
[2018-11-21] MEDS ORDERED: Acetaminophen TAB* 325 MG PO ONE (21:35)
--- NOTE | 2018-11-21 22:05 | HP ---
HISTORY AND PHYSICAL: DATE OF ADMISSION: 11/21/18 PRIMARY CARE PROVIDER: Dr. Peterson. WOOD GOUGER: The patient's daughter CODE STATUS: Full. CHIEF COMPLAINT: Facial swelling. REASON FOR ADMISSION: Cellulitis. SOURCE OF INFORMATION: HPI is obtained from the patient, who is an excellent historian. HISTORY OF PRESENT ILLNESS: 83-year-old male with a past medical history of oral cancer, status post excision of soft palate and muscle flap in 2016, followed by Dr. Juan Schaefer at [facility] in [place]; also with non- insulin-dependent diabetes; PVD; AFib, on anticoagulation; CAD; HFrEF 40%; hyperlipidemia; DARIUS, not on CPAP; who is presenting to the emergency room this evening from urgent care for right-sided facial pain, jaw and chin pain, redness , and swelling for 1 day. He does have the above past surgical history and is followed by Dr. Schaefer, whom he reached out to today and advised him to seek care at urgent care. At urgent care, they felt that his presentation is very concerning for cellulitis and given his known hardware, referred him to the emergency room where he presents today. He does report that his jaw became painful and swollen, started yesterday, and that the skin around his chin became noticeably redder over the past 24 hours. He has never had a complication like this in the past. In the emergency room, again surgery team at [place] was called and they report that they did not have a bed, but they did recommend that the patient be admitted for IV antibiotics and continue to monitor, if needing surgical manipulation to transfer the patient. ROS: Positive for facial pain and swelling, denies fevers or chills, difficulty swallowing, on a soft diet at baseline. Emergency room course in the ER: Temperature is 97.2, heart rate 88, 97% on room air, blood pressure 103/63. Labs show leukocytosis to 13, CMP unremarkable , and CRP elevated at 90. CT of the neck shows stranding around the right mandible hardware with no clear collection. The hospitalist team was asked to evaluate the patient and admit for IV antibiotics as well as monitoring, evaluation of cellulitis of chin and mandible overlying the skin and soft tissue. PAST MEDICAL HISTORY: Oral cancer, status post excision of soft palate and muscle flap in 2016, followed at [place]; atu-jntijic-qxflluhib diabetes; PVD; AFib; CAD; heart failure with reduction ejection fraction of 35% to 40%; history of V-tach; hyperlipidemia; hypertension; DARIUS, not on CPAP; BPH. PAST SURGICAL HISTORY: Second right toe amputation, he had defibrillator placed and then replaced, soft palate oral surgery in 2016, and bilateral hand surgeries. MEDICATIONS: 1. Acetaminophen 650 mg p.o. daily. p.r.n. for pain. 2. Albuterol/ipratropium nebulizers 1 neb inhaled q.i.d. p.r.n. for shortness of breath. 3. Allopurinol 300 mg p.o. q.a.m. 4. Apixaban 5 mg p.o. b.i.d. 5. Metoprolol 50 mg p.o. b.i.d. 6. Multivitamin 1 tab p.o. daily. 7. Simvastatin 20 mg p.o. daily. 8. Sotalol 80 mg p.o. b.i.d. 9. Triamcinolone cream topically b.i.d. p.r.n. ALLERGIES: No known drug allergies. FAMILY HISTORY: Coronary artery disease in mother and father. SOCIAL HISTORY: Tobacco: He is a former smoker with a 50-pack year history. Alcohol: He is a social drinker. Illicit: Never. 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 REVIEW OF SYSTEMS: Constitutional: The patient denies fevers, chills, or malaise. Eyes: Denies vision changes. ENT: Denies sore throat but does note pain, redness, and swelling around right jaw and right neck. Cardiovascular: Denies chest pain, palpitations, or orthopnea. Respiratory: Denies shortness of breath, cough, or pleuritic chest pain. GI: Denies nausea, vomiting, diarrhea, or abdominal pain. : Denies dysuria or hematuria. Musculoskeletal : Denies arthralgias or weakness. Skin: Does note overlying redness to right jaw and neck, but otherwise no new rashes or lesions. Neurologic: Denies no focal weakness or numbness. Psychiatric: Denies depression or anxiety. Endocrine: Denies polyuria or polydipsia. Heme: Denies new bruising, bleeding , or lymphadenopathy. PHYSICAL EXAMINATION GENERAL: He is an elderly appearing man, in no acute distress, sitting up in bed, pleasant and conversant. VITAL SIGNS: At the time of physical exam are blood pressure 114/71, temperature 98.6, pulse 88, respiratory rate 17, oxygen 97% on room air. HEENT: The patient has extraocular muscles intact. PERRLA. Dry mucous membranes. Redness at chin with purulent drainage at tip of chin and R jaw extending to top of right shoulder and upwards extending to right cheek with area of mild pale erythema, induration, and tenderness to palpation. Area is demarcated. Prior surgical scars appreciated. NECK: Supple. No supraclavicular or cervical lymphadenopathy. RESPIRATORY: Chest has distant breath sounds, but otherwise clear to auscultation. CARDIAC: Irregularly irregular with no murmurs, rubs, or gallops. ABDOMEN: Belly is soft, nontender, and nondistended with normoactive bowel sounds. MUSCULOSKELETAL AND EXTREMITIES: He moves all 4 limbs spontaneously, L arm is in brace. Extremities have 2+ palpable pulses on DP and no edema. NEUROLOGIC: Cranial nerves II through XII are intact with no focal deficits. The patient is A and O x3. SKIN: Shows above erythema noted in HEENT as well as chronic venous stasis of bilateral lower extremities. DIAGNOSTIC STUDIES/LAB DATA: Labs show CBC with white blood cell count of 13, hemoglobin 12, hematocrit 38, platelets 139. CMP shows sodium 135, potassium 3.7, chloride 102, carbon dioxide 27, BUN 21, creatinine 0.93, glucose 127. Alk phos 72, ALT 8, AST 115. CRP elevated at 90.76. Imaging done includes a neck CT which was ultimately read as: 1. Chronic unchanged erosive changes around the medial surgical margin of the parasymphyseal mandible, which could reflect locally recurrent neoplasm versus osteonecrosis. 2. New subcutaneous soft tissue stranding and thickening overlying the right mandible hardware, findings that could reflect cellulitis with no adjacent or drainable fluid collection and multiple nodular opacities in the partially visualized right lung largest measuring 0.7 cm, non-specific ground-glass attenuation in the partially visualized lingula. Imaging and labs are reviewed by myself. ASSESSMENT AND PLAN: 83-year-old man with a past medical history of oral cancer , status post excision of soft palate and muscle flap, non-insulin- dependent diabetes, peripheral vascular disease, atrial fibrillation, coronary artery disease, heart failure with reduced ejection fraction, hyperlipidemia, hypertension, obstructive sleep apnea, no on CPAP, chronic obstructive pulmonary disease, and gout who presents with cellulitis of the right mandible in the setting of known hardware. Plan is as follows: 1. Cellulitis. This is skin and soft tissue infection with known hardware and we would cover broadly at this time with vancomycin and cefepime. Blood cultures and wound cultures are pending. The patient does not meet criteria for SIRS or sepsis on admission though will need to watch closely. We will update [place] surgical team if further manipulation of hardware is needed and we will ask Infectious Disease to consult. 2. History of oral cancer. He will need to follow up with [place] for repeat scans given above CT showing changes at the margin of the parasymphyseal mandible with question of recurrent neoplasm versus osteonecrosis. He will need his scans compared to his surveillance scans in [place] and we will update his surgical team on hospital day 4. Atrial fibrillation, on anticoagulation. Rate controlled with metoprolol and sotalol, continue. Continue anticoagulation with apixaban. 5. Uwu-fxftnxb-ahbaktqhx diabetes. Glucose monitoring with low-dose sliding scale insulin. 6. Peripheral vascular disease. We will continue his statin. 7. Coronary artery disease. Continue statin and metoprolol. 8. Heart failure with reduced ejection fraction. Currently, the patient is not on fluids and he does not appear hypervolemic at this time. We will continue to monitor. 9. Obstructive sleep apnea. The patient is non-compliant on CPAP at baseline and does refuse hospital. 10. Chronic obstructive pulmonary disease. We will continue p.r.n. DuoNebs for shortness of breath and wheezing. 11. Gout. We will continue on home dose allopurinol. 12. DVT prophylaxis. The patient will remain on anticoagulation with apixaban. 13. Diet: Soft diet with supplemental dietary nutrition given his history of oral cancer. 14. Code status: Full. 15. Disposition: Stable for the medical floor, inpatient, and he may need to be transferred to [facility] if any hardware manipulation is needed in the setting of this infection. The patient and family are updated on plan of care and they agree with admission and continued monitoring of his right skin and soft tissue infection of cellulitis. They have no further questions. TIME SPENT: Thirty-five minutes was spent on planning of this admission with over half of that spent directly at the bedside with the patient providing direct patient care. [id number]/[facility] #: [id number] AMBROSE
[2018-11-21] MEDS: Sotalol TAB* 80 MG PO SCH (22:47)
[2018-11-21] MEDS: Apixaban* 5 MG TAB PO SCH (22:47)
[2018-11-21] MEDS: Metoprolol Succinate XL TAB* 50 MG PO SCH (22:47)
[2018-11-22] MEDS: Vancomycin(*) 750 MG in NS 0.9% 250 ML* 250 ML IVPB SCH ×2 (04:30→11:39)
[2018-11-22] MEDS: Acetaminophen TAB* 325 MG PO PRN (05:10)
[2018-11-22] MEDS: oxyCODONE/Acetamin 5/325 MG* TAB PO PRN (05:11)
[2018-11-22 06:24] LABS: Hematocrit 41 % (36-46); Hemoglobin 13.4 g/dL (14.0-18.0); Mean Corpuscular HGB Conc 33 g/dL (31-36); Mean Corpuscular Hemoglobin 31 pg (27-31); Mean Corpuscular Volume 95 fL (80-94); Mean Platelet Volume 10.1 fL (7.4-10.4); Platelet Count 107 10^3/uL (150-450); Red Blood Count 4.26 10^6 /uL (4.18-5.48); Red Cell Distribution Width 16 % (10.5-15); White Blood Count 16.6 10^3/uL (3.5-10.8)
[2018-11-22 06:26] LABS: ABS Basophils 0.1 10^3/ul (0-0.2); ABS Eosinophils 0 10^3/ul (0-0.6); ABS Lymphocytes 0.6 10^3/ul (1.0-4.8); ABS Monocytes 1.8 10^3/ul (0-0.8); ABS Nucleated RBC 0 10^3/ul; Eosinophil % 0.3 %; Lymphocyte % 3.7 %; Nucleated Red Blood Cells % 0
[2018-11-22 06:46] LABS: BUN/Creatinine Ratio 22.8 (8-20); Calcium 9.6 mg/dL (8.6-10.3); EGFR African American 113.3 (>60); EGFR Non-African American 93.7 (>60)
[2018-11-22] MEDS ORDERED: Cefepime 1 GM in Dextrose(*) 1 GM/50 ML BAG IV SCH (07:30)
[2018-11-22] MEDS: Metoprolol Succinate XL TAB* 50 MG PO SCH ×2 (07:45→22:23)
[2018-11-22] MEDS ORDERED: NS 0.9% 1000 ML** 1,000 ML IV ONE (07:53)
[2018-11-22] MEDS: Insulin LISPRO* 1 UNITS UNIT SUBCUT SCH ×3 (08:13→17:34)
[2018-11-22] MEDS: Atorvastatin* 10 MG TAB PO SCH (08:15)
[2018-11-22] MEDS: Allopurinol TAB* 300 MG PO SCH (08:15)
[2018-11-22] MEDS: Sotalol TAB* 80 MG PO SCH ×2 (08:15→22:26)
[2018-11-22] MEDS: Apixaban* 5 MG TAB PO SCH ×2 (08:15→22:25)
[2018-11-22] MEDS ORDERED: NS 0.9% 500 ML* 500 ML IV ONE (11:30)
[2018-11-22] MEDS: ceFAZolin 2 GM PREMIX in ORs 2 GM/50 ML BAG IVPB SCH ×2 (16:32→22:27)
--- NOTE | 2018-11-22 17:17 | CONS ---
CONSULTATION REPORT: DATE OF CONSULT: 11/22/18 REQUESTING PHYSICIAN: Dr. Paul. CONSULTING SERVICE: Infectious Disease. REASON FOR CONSULT: Cellulitis of the face. IMPRESSION: 1. Left mandible soft tissue swelling and diffuse erythema, warmth from the angle of the mandible down through the chest without crepitus or fluctuance or chest pain. He has small abscess and cellulitis associated with his left jaw. He had had muscle flap in 2016. There was hardware fixation and there has recently been question of a screw backing out as well as CT in September 2018 that showed development of erosive change around the medial aspect of resection margin of the right mandible, but in 2016, it showed increased FDG uptake on a PET/CT. The differential there, I think, includes osteomyelitis of the jaw as well as recurrence of neoplasm or osteonecrosis. He had already had a biopsy pending, which will be done next week as an outpatient to investigate that further. 2. Leukocytosis, which is worsening, though he is improving. I suspect that is a lagging indicator. 3. Status post defibrillator placement. 4. Neck cancer, status post resection in 1993, and then recurrence in 2016 with resection of the mandible and muscle flap. 5. Coronary artery disease. RECOMMENDATION: We will stop vancomycin and cefepime, start Ancef 2 g every 8 hours. Continue that here until there is significant improvement in the soft tissue component of his infection. He will then ideally transition to oral antibiotics while awaiting the biopsy. If he is not improving he may need debridement, hardware removal and that would probably need to be done with his surgeons at [facility]. HISTORY OF PRESENT ILLNESS: This is an 83-year-old man with history of neck cancer and resection of the right mandible with fixation hardware present, admitted with swelling, pain, and redness of his left and anterior mandible down into the neck with fevers and difficulty swallowing at home. His surgeon at [facility] directed him to the hospital and he was seen in the ER. There is a small wound on the anterior chin, which was swabbed; it is growing Staph aureus, which is PCR negative for MRSA. He has had vancomycin and cefepime here , which he has tolerated well and the redness, pain, and swelling have receded. His appetite is much improved today. He has had no fever here. He had had some swelling and the question of a screw backing out of the fixation hardware, so a CT was obtained that showed some erosive change around the margin of resection and an outpatient biopsy had been set up for bone biopsy it seems to investigate that further. He has not had other infections of the jaw that he can recall. PAST MEDICAL HISTORY: 1. Head and neck cancer, resected in 1993 with recurrence in 2016, resected and with resection of the right mandible and fixation as well as muscle flap. 2. Coronary artery disease. 3. Cardiomyopathy with defibrillator placement. 4. Eqk-jsxdssj-mynzzqnhi diabetes. 5. Peripheral vascular disease. 6. Atrial fibrillation. 7. Ventricular tachycardia. 8. Hyperlipidemia. 9. Hypertension. 10. Sleep apnea. 11. Benign prostatic hypertrophy. 12. Status post right second toe amputation. ALLERGIES: No known drug allergies. MEDICATIONS: 1. Tylenol. 2. Albuterol. 3. Allopurinol. 4. Apixaban. 5. Lipitor. 6. Cefepime 1 g every 12 hours. 7. Dextrose. 8. Metoprolol. 9. Vancomycin. 10. Sotalol. FAMILY HISTORY: Coronary artery disease in both parents. SOCIAL HISTORY: Lives in [place]. Past smoker. He drinks alcohol. He lives with his . REVIEW OF SYSTEMS: All negative except as noted above to a 14-point review. PHYSICAL EXAM: Vital Signs: Temperature 36.4, heart rate 87, respiratory rate 18, blood pressure 120/50, oxygen saturation 100% on room air. In general, he is awake, not in distress. Neurologic: He is oriented x3, follows commands. HEENT: There is no conjunctival hemorrhage. Oropharynx: Tongue without thrush. Neck: There is diffuse erythema in the anterior left neck up through the mandible without fluctuance or tenderness. There is anterior 2-mm eschar with slight underlying fluctuance there. No purulent fluid expressed. Heart has regular rate and rhythm without murmurs, rubs, or gallops. Lungs are clear to auscultation bilaterally. Abdomen: Soft, nontender, nondistended. Bowel sounds present. Skin: There is no rash or splinter hemorrhage. Musculoskeletal: There is no spine tenderness to palpation or joint synovitis. LABORATORY DATA: White blood cell count 16, hemoglobin 13, platelets 107, MCV 95. Creatinine 0.7. CRP 90. Please see impression and recommendations as outlined above. Thanks for asking me to see Mr. Baxter in consultation. [id number]/[facility] #: [id number] MTDD
[2018-11-22] MEDS ORDERED: NS 0.9% 1000 ML** 1,000 ML IV SCH (18:15)
--- NOTE | 2018-11-22 18:56 | PN ---
Subjective Date of Service: 11/22/18 Interval History: VS: hypotension, resolved with fluid administration Lab: leukocytosis, slightly low Hgb, thrombocytopenia, elevated BUN/Cr Pt presents with cellulitis of jaw, neck. He is s/p excision of soft palate and muscle flap with hardware placement 2015. He states that he is feeling better today, although he is sore, there is less aching. He believes that the area is less swollen and red than when he first presented. He states that he fell and hit chin approximately 6 weeks ago, and then hit it with his hand days ago. He has an area on the chin that appears open that has been there for a few days. Currently, pt denies difficulty with swallowing or breathing. He denies CP, SOB, abd pain, n/v/d, swelling or pain in LE. Nursing reports low urine output that appears dark today. Objective Active Medications: Acetaminophen (Tylenol Tab*) 650 mg PO Q6H PRN Albuterol/Ipratropium (Duoneb (Albuterol 2.5 Mg/Ipratropium 0.5 Mg)) 1 neb INH QID PRN Allopurinol (Zyloprim Tab*) 300 mg PO QAM [facility] Apixaban (Eliquis*) 5 mg PO BID [facility] Atorvastatin Calcium (Lipitor*) 10 mg PO DAILY [facility] Dextrose (D50w Syringe 50 Ml*) 12.5 gm IV PUSH .FOR FS < 60 - SS PRN Cefazolin Sodium/Dextrose (Kefzol 2 Gm Premix In Ors(*)) 2 gm in 50 mls @ 100 mls/hr IVPB Q8H [facility] Sodium Chloride (Ns 0.9% 1000 Ml) 1,000 mls @ 75 mls/hr IV PER RATE [facility] Insulin Human Lispro (Humalog*) 0 units SUBCUT AC [facility]; Protocol Metoprolol Succinate (Toprol Xl Tab*) 50 mg PO BID [facility] Ondansetron HCl (Zofran Inj*) 4 mg IV Q8H PRN Oxycodone/Acetaminophen (Percocet 5/325 Tab*) 1 tab PO Q8H PRN Sotalol HCl (Betapace Tab*) 80 mg PO BID [facility] Vital Signs: Temp Pulse Resp BP Pulse Ox 97.6 F 87 18 120/50 100 11/22/18 11:37 11/22/18 11:37 11/22/18 11:37 11/22/18 12:35 11/22/18 11:25 Oxygen Devices in Use Now: None Appearance: Pt is sitting up in bed. He appears to be in no acute distress. Eyes: No Scleral Icterus, PERRLA Ears/Nose/Mouth/Throat: - - Dry oral mucosa. Area of erythema on jaw remains within area of demarcation, but extends approximately 1.5 cm beyond previously marked area on neck. TTP. Erythematous. There is a wound on L side of chin that appears crusty and with minimal drainage. Neck: NL Appearance and Movements; NL JVP, Trachea Midline Respiratory: Symmetrical Chest Expansion and Respiratory Effort, Clear to Auscultation Cardiovascular: NL Sounds; No Murmurs; No JVD, RRR, No Edema Abdominal: NL Sounds; No Tenderness; No Distention, No Hepatosplenomegaly Extremities: No Edema, No Clubbing, Cyanosis Neurological: Alert and Oriented x 3 Result Diagrams: 11/22/18 06:04 11/22/18 06:04 Additional Lab and Data: Lab Results 11/21/18 11/21/18 11/21/18 Range/Units 16:42 16:42 16:42 WBC 13.0 H (3.5-10.8) 10^3/uL RBC 4.03 L (4.18-5.48) 10^6 /uL Hgb 12.6 L (14.0-18.0) g/dL Hct 38 (36-46) % MCV 94 (80-94) fL MCH 31 (27-31) pg MCHC 33 (31-36) g/dL RDW 16 H (10.5-15) % Plt Count 139 L (150-450) 10^3/uL MPV 10.4 (7.4-10.4) fL Neut % (Auto) Pending Lymph % (Auto) Pending [place] % (Auto) Pending Eos % (Auto) Pending Baso % (Auto) Pending Absolute Neuts (auto) Pending Absolute Lymphs (auto) Pending Absolute Monos (auto) Pending Absolute Eos (auto) Pending Absolute Basos (auto) Pending Absolute Nucleated RBC Pending Nucleated RBC % Pending Sodium 135 (135-145) mmol/L Potassium 3.7 (3.5-5.0) mmol/L Chloride 102 (101-111) mmol/L Carbon Dioxide 27 (22-32) mmol/L Anion Gap 6 (2-11) mmol/L BUN 21 (6-24) mg/dL Creatinine 0.93 (0.67-1.17) mg/dL Est GFR ( Amer) 93.9 (>60) Est GFR (Non-Af Amer) 77.6 (>60) BUN/Creatinine Ratio 22.6 H (8-20) Glucose 127 H (70-100) mg/dL Lactic Acid 1.5 (0.5-2.0) mmol/L Calcium 9.4 (8.6-10.3) mg/dL Total Bilirubin 1.10 H (0.2-1.0) mg/dL AST 15 (13-39) U/L ALT 8 (7-52) U/L Alkaline Phosphatase 72 (34-104) U/L C-Reactive Protein Pending Total Protein 7.2 (6.4-8.9) g/dL Albumin 3.8 (3.2-5.2) g/dL Globulin 3.4 (2-4) g/dL Albumin/Globulin Ratio 1.1 (1-3) Microbiology and Other Data: Microbiology 11/21/18 16:42 Aerobic Blood Culture - Preliminary Blood Venous No Growth Day 1 Anaerobic Blood Culture - Preliminary No Growth Day 1 11/21/18 16:42 Aerobic Blood Culture - Preliminary Blood Venous No Growth Day 1 Anaerobic Blood Culture - Preliminary No Growth Day 1 11/21/18 17:42 Skin and Soft Tissue MRSA/MSSA (PCR - Final Face Mrsa Negative S.aureus Positive Gram Stain - Final Wound Culture - Preliminary Staphylococcus Aureus Assess/Plan/Problems-Billing Assessment: 83 yom with 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 - Patient Problems (1) Cellulitis and abscess of face Comment: -Appreciate ID input -Continue cefazolin -Possible mandibular biopsy tomorrow, due to neoplasm v ostenecrosis v osteomyelitis (2) Congestive heart failure (CHF) Comment: -Most recent Echo shows EF of 35-40% -Pt hypotensive with dry oral mucosa and low urine output; concern for fluid overload v dehydration -500cc bolus plus 1 L IVF at 75/h (3) Atrial fibrillation Comment: -Rate controlled -Continue sotalol, apixaban -Continue metoprolol with hold parameters (4) Diabetes mellitus Comment: -Adequately controlled -Continue ss lispro (5) COPD (chronic obstructive pulmonary disease) Comment: -Not in acute exacerbation -Duonebs prn (6) CAD (coronary artery disease) Comment: -Continue atorvastatin (7) Full code status (8) DVT prophylaxis Comment: -Apixaban Status and Disposition: Inpatient. Discharge when stable. Possible mandibular biopsy tomorrow.
[2018-11-22] MEDS ORDERED: Vancomycin Trough Check NOTE FOLLOW UP ONE (19:30)
[2018-11-23 07:18] LABS: BUN/Creatinine Ratio 25.8 (8-20); Calcium 8.4 mg/dL (8.6-10.3); EGFR African American 139.5 (>60); EGFR Non-African American 115.3 (>60); Potassium 3.7 mmol/L (3.5-5.0)
[2018-11-23] MEDS: ceFAZolin 2 GM PREMIX in ORs 2 GM/50 ML BAG IVPB SCH ×3 (07:31→22:12)
[2018-11-23 07:44] LABS: ABS Basophils 0 10^3/ul (0-0.2); ABS Eosinophils 0 10^3/ul (0-0.6); ABS Lymphocytes 0.7 10^3/ul (1.0-4.8); ABS Monocytes 1.3 10^3/ul (0-0.8); ABS Neutrophils 10.6 10^3/ul (1.5-7.7); ABS Nucleated RBC 0 10^3/ul; Eosinophil % 0.3 %; Hematocrit 31 % (36-46); Hemoglobin 10.2 g/dL (14.0-18.0); Lymphocyte % 5.4 %; Mean Corpuscular HGB Conc 33 g/dL (31-36); Mean Corpuscular Hemoglobin 31 pg (27-31); Mean Corpuscular Volume 94 fL (80-94); Nucleated Red Blood Cells % 0; Red Blood Count 3.27 10^6 /uL (4.18-5.48); Red Cell Distribution Width 16 % (10.5-15); White Blood Count 12.6 10^3/uL (3.5-10.8)
[2018-11-23] MEDS: Insulin LISPRO* 1 UNITS UNIT SUBCUT SCH ×3 (07:44→16:45)
[2018-11-23 08:18] LABS: Mean Platelet Volume 10.7 fL (7.4-10.4); Platelet Count 90 10^3/uL (150-450)
--- NOTE | 2018-11-23 08:54 | PN ---
Progress Note - Progress Note Date of Service: 11/23/18 SOAP: Subjective: CC: Facial Cellulitis HPI: Mr. 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 Denies fever, chills, N/V/D or constipation. He feels like the skin on his face is tighter today then yesterday and the swelling to the right side of his neck has changed/ increased. He feels like he is having trouble breathing, but is unsure how to describe this and is asking for a nebulizer. Objective: Vital Signs - 8 hr 11/23/18 11/23/18 11/23/18 01:31 03:04 03:15 Temperature 98.9 F 100.3 F 100.3 F Pulse Rate 32 95 95 Respiratory 16 18 18 Rate Blood Pressure 94/34 110/51 110/51 (mmHg) O2 Sat by Pulse 94 95 95 Oximetry 11/23/18 07:15 Temperature 98.8 F Pulse Rate 32 Respiratory 18 Rate Blood Pressure 112/52 (mmHg) O2 Sat by Pulse 97 Oximetry Physical Exam: General: NAD, sitting up on the side of the bed Neurological: Alert and Oriented HEENT: No thrush Cardiovascular: Heart rate regular Respiratory: Lungs clear in the upper lobes and left base, scattered rhonchi in the right middle and lower lobes Abdominal: Bowel sounds present, ABD soft, non tender and non distended Skin: Erythema to the mandible line and upper chest, there is swelling to the right lateral/anterior neck Laboratory Results - last 24 hr 11/22/18 11/22/18 11/22/18 12:09 16:33 19:02 WBC RBC Hgb Hct MCV MCH MCHC RDW Plt Count MPV Neut % (Auto) Lymph % (Auto) Mora % (Auto) Eos % (Auto) Baso % (Auto) Absolute Neuts (auto) Absolute Lymphs (auto) Absolute Monos (auto) Absolute Eos (auto) Absolute Basos (auto) Absolute Nucleated RBC Nucleated RBC % Sodium Potassium Chloride Carbon Dioxide Anion Gap BUN Creatinine Est GFR ( Amer) Est GFR (Non-Af Amer) BUN/Creatinine Ratio Glucose POC Glucose (mg/dL) 123 H 149 H Calcium Vancomycin Trough 13.8 11/23/18 11/23/18 11/23/18 06:41 06:41 07:35 WBC 12.6 H RBC 3.27 L Hgb 10.2 L Hct 31 L MCV 94 MCH 31 MCHC 33 RDW 16 H Plt Count 90 L MPV 10.7 H Neut % (Auto) 84.1 Lymph % (Auto) 5.4 Mora % (Auto) 10.0 Eos % (Auto) 0.3 Baso % (Auto) 0.2 Absolute Neuts (auto) 10.6 H Absolute Lymphs (auto) 0.7 L Absolute Monos (auto) 1.3 H Absolute Eos (auto) 0 Absolute Basos (auto) 0 Absolute Nucleated RBC 0 Nucleated RBC % 0 Sodium 134 L Potassium 3.7 Chloride 106 Carbon Dioxide 24 Anion Gap 4 BUN 17 Creatinine 0.66 L Est GFR ( Amer) 139.5 Est GFR (Non-Af Amer) 115.3 BUN/Creatinine Ratio 25.8 H Glucose 108 H POC Glucose (mg/dL) 124 H Calcium 8.4 L Vancomycin Trough Microbiology 11/21/18 17:42 Skin and Soft Tissue MRSA/MSSA (PCR - Final Face Mrsa Negative S.aureus Positive Gram Stain - Final Wound Culture - Preliminary Staphylococcus Aureus 11/21/18 16:42 Aerobic Blood Culture - Preliminary Blood Venous No Growth Day 1 Anaerobic Blood Culture - Preliminary No Growth Day 1 11/21/18 16:42 Aerobic Blood Culture - Preliminary Blood Venous No Growth Day 1 Anaerobic Blood Culture - Preliminary No Growth Day 1 Assessment: 1. Left mandible soft tissue swelling and diffuse erythema and warmth from the angle of the mandible down to the chest. History of hardware fixation, with recent concern for a screw backing out with a CT in 09/2018 showing erosive change around the medial aspect of the resection margin of the right mandible. Differential DX: Osteomyelitis of the jaw vs recurrence of neoplasm vs osteonecrosis. Plan for biopsy next week according to the patient and family 2. Leukocytosis. Now improving, had low grade fevers this morning. 3. History neck cancer. S/P resection in 1993 and then recurrence in 2015 with resection of the mandible and muscle flap. 4. CAD. Plan: Continue Ancef 2 g IV every 8 hours. Will need to continue the IV ABX until he has significant improvement in the soft tissue swelling. Will then need to be switched to oral ABX. Recommend having ENT evaluate the patient for further recommendations (need for transfer to [place] vs possible surgery and biopsy at [facility] [place]
[2018-11-23] MEDS: Apixaban* 5 MG TAB PO SCH ×2 (09:26→21:07)
[2018-11-23] MEDS: Metoprolol Succinate XL TAB* 50 MG PO SCH ×2 (09:26→21:07)
[2018-11-23] MEDS: Atorvastatin* 10 MG TAB PO SCH (09:26)
[2018-11-23] MEDS: Allopurinol TAB* 300 MG PO SCH (09:26)
[2018-11-23] MEDS: Sotalol TAB* 80 MG PO SCH ×2 (09:31→21:07)
[2018-11-23] MEDS ORDERED: DOXYcycline IV* 100 MG in NS 0.9% 250 ML* 250 ML IVPB SCH (14:00)
[2018-11-23] MEDS: oxyCODONE/Acetamin 5/325 MG* TAB PO PRN (14:38)
[2018-11-23] MEDS ORDERED: Loperamide CAP* 2 MG PO PRN (15:14)
[2018-11-23] MEDS: Clindamycin 600 MG/D5W BAG(*) 600 MG/50 ML BAG IV SCH ×2 (16:34→23:17)
--- NOTE | 2018-11-23 19:11 | PN ---
Subjective Date of Service: 11/23/18 Interval History: VS: occasional low grade fever; others WNL Lab: leukocytosis, decreased H/H, platelets, slight hyponatremia- pt received fluid bolus, so may be partially dilutional; will continue to monitor Pt states that he feels a tightness in the neck area. He denies difficulty with swallowing at this time. He denies fever, chills, cough, SOB. The patient is noted to be scheduled for mandibular biopsy on Wednesday. Objective Active Medications: Acetaminophen (Tylenol Tab*) 650 mg PO Q6H PRN Albuterol/Ipratropium (Duoneb (Albuterol 2.5 Mg/Ipratropium 0.5 Mg)) 1 neb INH QID PRN Allopurinol (Zyloprim Tab*) 300 mg PO QAM [facility] Apixaban (Eliquis*) 5 mg PO BID [facility] Atorvastatin Calcium (Lipitor*) 10 mg PO DAILY [facility] Dextrose (D50w Syringe 50 Ml*) 12.5 gm IV PUSH .FOR FS < 60 - SS PRN Cefazolin Sodium/Dextrose (Kefzol 2 Gm Premix In Ors(*)) 2 gm in 50 mls @ 100 mls/hr IVPB Q8H [facility] Clindamycin HCl/Dextrose (Cleocin 600 Mg/50 Ml(*)) 600 mg in 50 mls @ 100 mls/ hr IV Q8H [facility] Insulin Human Lispro (Humalog*) 0 units SUBCUT AC [facility]; Protocol Loperamide HCl (Imodium Cap*) 2 mg PO .SEE DIRECTIONS PRN Metoprolol Succinate (Toprol Xl Tab*) 50 mg PO BID [facility] Ondansetron HCl (Zofran Inj*) 4 mg IV Q8H PRN Oxycodone/Acetaminophen (Percocet 5/325 Tab*) 1 tab PO Q8H PRN Sotalol HCl (Betapace Tab*) 80 mg PO BID [facility] Vital Signs: Temp Pulse Resp BP Pulse Ox 99.4 F 91 17 123/69 97 11/23/18 15:21 11/23/18 15:21 11/23/18 16:38 11/23/18 15:21 11/23/18 15:21 Oxygen Devices in Use Now: None Appearance: Pt is sitting up in bed, with LE elevated. He appears in no acute distress; no work of breathing noted. Eyes: No Scleral Icterus, PERRLA Ears/Nose/Mouth/Throat: NL Teeth, Lips, Gums, Clear Oropharnyx, Mucous Membranes Moist, - - L tip of mandible with wound that is crust and has grown in size from yesterday; there is minimal drainage. Area of erythema has not extended beyond area of demarcation. It is still swollen and appears to have decreased in swelling on the L side and shifted to the R side. Neck: - - Slightly erythematous with swelling as described above Respiratory: Symmetrical Chest Expansion and Respiratory Effort, - - Decreased breath sounds, without rhonchi, wheeze, rubs Cardiovascular: NL Sounds; No Murmurs; No JVD, No Edema - Decreased heart sounds. Barrel-shaped chest noted. Abdominal: NL Sounds; No Tenderness; No Distention, No Hepatosplenomegaly Extremities: No Clubbing, Cyanosis Neurological: Alert and Oriented x 3 Result Diagrams: 11/23/18 06:41 11/23/18 06:41 Additional Lab and Data: Lab Results 11/21/18 11/21/18 11/21/18 Range/Units 16:42 16:42 16:42 WBC 13.0 H (3.5-10.8) 10^3/uL RBC 4.03 L (4.18-5.48) 10^6 /uL Hgb 12.6 L (14.0-18.0) g/dL Hct 38 (36-46) % MCV 94 (80-94) fL MCH 31 (27-31) pg MCHC 33 (31-36) g/dL RDW 16 H (10.5-15) % Plt Count 139 L (150-450) 10^3/uL MPV 10.4 (7.4-10.4) fL Neut % (Auto) Pending Lymph % (Auto) Pending Towner % (Auto) Pending Eos % (Auto) Pending Baso % (Auto) Pending Absolute Neuts (auto) Pending Absolute Lymphs (auto) Pending Absolute Monos (auto) Pending Absolute Eos (auto) Pending Absolute Basos (auto) Pending Absolute Nucleated RBC Pending Nucleated RBC % Pending Sodium 135 (135-145) mmol/L Potassium 3.7 (3.5-5.0) mmol/L Chloride 102 (101-111) mmol/L Carbon Dioxide 27 (22-32) mmol/L Anion Gap 6 (2-11) mmol/L BUN 21 (6-24) mg/dL Creatinine 0.93 (0.67-1.17) mg/dL Est GFR ( Amer) 93.9 (>60) Est GFR (Non-Af Amer) 77.6 (>60) BUN/Creatinine Ratio 22.6 H (8-20) Glucose 127 H (70-100) mg/dL Lactic Acid 1.5 (0.5-2.0) mmol/L Calcium 9.4 (8.6-10.3) mg/dL Total Bilirubin 1.10 H (0.2-1.0) mg/dL AST 15 (13-39) U/L ALT 8 (7-52) U/L Alkaline Phosphatase 72 (34-104) U/L C-Reactive Protein Pending Total Protein 7.2 (6.4-8.9) g/dL Albumin 3.8 (3.2-5.2) g/dL Globulin 3.4 (2-4) g/dL Albumin/Globulin Ratio 1.1 (1-3) Microbiology and Other Data: Microbiology 11/21/18 16:42 Aerobic Blood Culture - Preliminary Blood Venous No Growth Day 1 Anaerobic Blood Culture - Preliminary No Growth Day 1 11/21/18 16:42 Aerobic Blood Culture - Preliminary Blood Venous No Growth Day 1 Anaerobic Blood Culture - Preliminary No Growth Day 1 11/21/18 17:42 Skin and Soft Tissue MRSA/MSSA (PCR - Final Face Mrsa Negative S.aureus Positive Gram Stain - Final Wound Culture - Preliminary Staphylococcus Aureus Assess/Plan/Problems-Billing Assessment: 83 yom with 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 - Patient Problems (1) Cellulitis and abscess of face Comment: -Appreciate ID input -Continue cefazolin, clindamycin -ENT consulted and recommends treatment of cellulitis with very close outpatient follow up to [facility] -Plan to call [facility] tomorrow to discuss case and collaborate -Likely putting off mandibular biopsy until return to [place] (2) Congestive heart failure (CHF) Comment: -Most recent Echo shows EF of 35-40% -Pt appears euvolemic; lung sounds clear, oral mucosa moist -Continue to monitor (3) Atrial fibrillation Comment: -Rate controlled -Continue sotalol, apixaban -Continue metoprolol with hold parameters (4) Diabetes mellitus Comment: -Adequately controlled -Continue ss lispro (5) COPD (chronic obstructive pulmonary disease) Comment: -Not in acute exacerbation -Duonebs prn (6) CAD (coronary artery disease) Comment: -Continue atorvastatin (7) Full code status (8) DVT prophylaxis Comment: -Apixaban Status and Disposition: Inpatient. Discharge when stable. Possible mandibular biopsy tomorrow.
--- NOTE | 2018-11-23 20:17 | CONS ---
CONSULTATION REPORT: DATE OF CONSULT: 11/23/18 Consultation for the hospitalist service. BRIEF HISTORY: This is a pleasant 83-year-old gentleman with previous history of squamous cell carcinoma, longstanding history, had recurrence in the retromolar trigone area, had been seen in [place] and underwent a composite resection of ramus and mandible with reconstruction without fibular graft using a plate and pec flap for closure. He was noted to have a traumatic erosion of the mandibular sling flap in incision site with an extruding hardware. There was cellulitis surrounding the soft tissue. Oral cavity examination shows no evidence of recurrence in the mucosal surface of the pec flap. There was extensive erythema around the chin and extending into the lower neck. It had been previously marked and the patient was on IV antibiotics. I reviewed the CT scan, which showed what I described above, which is the abscess of the partial mandible down to the ramus with plate reconstruction. It appears that there may be some malunion of the screws if he had been using his mandible to chew, it is not an uncommon complication. This would also causing extrusion of the screw and loosening of the hardware, which may cause breakdown in the skin and surrounding structures possibly causing infection. There is no clinical evidence of recurrence at this point. I suggested to the patient IV antibiotics. He should go back to [place] after he is medically more stable. They may perform either removal of the hardware or a sort of partially. I discussed with him whether a free fibular flap may be necessary or other reconstructive options available that may be medically deemed necessary by that reconstructive team. Thanks for allowing us to take care of this patient. [id number]/[facility] #: [id number] AMBROSE
[2018-11-24] MEDS: oxyCODONE/Acetamin 5/325 MG* TAB PO PRN ×2 (01:20→15:53)
[2018-11-24] MEDS: ceFAZolin 2 GM PREMIX in ORs 2 GM/50 ML BAG IVPB SCH ×3 (06:25→23:34)
[2018-11-24] MEDS: Insulin LISPRO* 1 UNITS UNIT SUBCUT SCH ×3 (07:35→17:00)
[2018-11-24] MEDS: Clindamycin 600 MG/D5W BAG(*) 600 MG/50 ML BAG IV SCH (08:27)
[2018-11-24] MEDS: Allopurinol TAB* 300 MG PO SCH (08:27)
[2018-11-24] MEDS: Apixaban* 5 MG TAB PO SCH ×2 (08:28→21:13)
[2018-11-24] MEDS: Atorvastatin* 10 MG TAB PO SCH (08:28)
[2018-11-24] MEDS: Metoprolol Succinate XL TAB* 50 MG PO SCH ×2 (08:28→21:13)
[2018-11-24] MEDS: Sotalol TAB* 80 MG PO SCH ×2 (08:28→21:13)
--- NOTE | 2018-11-24 09:25 | PN ---
Subjective Date of Service: 11/24/18 Interval History: VS: WNL with occasional hypotension Lab: leukocytosis- improving, anemia Pt reports decrease in SOB, and states that he is breathing better. He denies difficulty with swallowing. Currently, he denies CP, cough, fever, abd pain, n/ v/d/c, LE pain or edema. He has a brace on the L wrist from recent surgical intervention. He denies pain in that area. He feels that his cellulitis is improving. He is eating and drinking without difficulty. He was up walking in halls today. Talked with Dr. Schaefer's Nurse, Jovana Waterman today. Plan is to cancel mandibular biopsy scheduled for Wednesday and follow up with Dr. Schaefer on at 11:00 a.m. Objective Active Medications: Acetaminophen (Tylenol Tab*) 650 mg PO Q6H PRN Albuterol/Ipratropium (Duoneb (Albuterol 2.5 Mg/Ipratropium 0.5 Mg)) 1 neb INH QID PRN Allopurinol (Zyloprim Tab*) 300 mg PO QAM [facility] Apixaban (Eliquis*) 5 mg PO BID [facility] Atorvastatin Calcium (Lipitor*) 10 mg PO DAILY [facility] Dextrose (D50w Syringe 50 Ml*) 12.5 gm IV PUSH .FOR FS < 60 - SS PRN Cefazolin Sodium/Dextrose (Kefzol 2 Gm Premix In Ors(*)) 2 gm in 50 mls @ 100 mls/hr IVPB Q8H [facility] Clindamycin HCl/Dextrose (Cleocin 600 Mg Ivpremix(*) Sdv) 600 mg in 50 mls @ 100 mls/hr IV Q8H [facility] Insulin Human Lispro (Humalog*) 0 units SUBCUT AC [facility]; Protocol Loperamide HCl (Imodium Cap*) 2 mg PO .SEE DIRECTIONS PRN Metoprolol Succinate (Toprol Xl Tab*) 50 mg PO BID [facility] Ondansetron HCl (Zofran Inj*) 4 mg IV Q8H PRN Oxycodone/Acetaminophen (Percocet 5/325 Tab*) 1 tab PO Q8H PRN Sotalol HCl (Betapace Tab*) 80 mg PO BID [facility] Vital Signs: Temp Pulse Resp BP Pulse Ox 97.7 F 79 17 108/65 95 11/24/18 15:11 11/24/18 16:33 11/24/18 17:53 11/24/18 15:11 11/24/18 16:33 Oxygen Devices in Use Now: None Appearance: Pt is sitting in bed with HOB elevated and LE elevated. He is in no acute distress. Eyes: No Scleral Icterus, PERRLA Ears/Nose/Mouth/Throat: NL Teeth, Lips, Gums, Mucous Membranes Moist, - - Clear deformity to lower jaw from surgical resection. Erythematous area is receding from neck and is less intense. There is still erythema to the jaw with crusty discharge/wound on the tip of the L chin. Firm swelling in neck has improved, but still present. Neck: NL Appearance and Movements; NL JVP, Trachea Midline Respiratory: Symmetrical Chest Expansion and Respiratory Effort, Clear to Auscultation, - - No wheeze, rhonchi, rales; decreased breath sounds Cardiovascular: NL Sounds; No Murmurs; No JVD, RRR, No Edema Abdominal: NL Sounds; No Tenderness; No Distention, No Hepatosplenomegaly Extremities: No Edema, No Clubbing, Cyanosis, - - L wrist with brace Neurological: Alert and Oriented x 3 Result Diagrams: 11/23/18 06:41 11/23/18 06:41 Additional Lab and Data: Lab Results 11/21/18 11/21/18 11/21/18 Range/Units 16:42 16:42 16:42 WBC 13.0 H (3.5-10.8) 10^3/uL RBC 4.03 L (4.18-5.48) 10^6 /uL Hgb 12.6 L (14.0-18.0) g/dL Hct 38 (36-46) % MCV 94 (80-94) fL MCH 31 (27-31) pg MCHC 33 (31-36) g/dL RDW 16 H (10.5-15) % Plt Count 139 L (150-450) 10^3/uL MPV 10.4 (7.4-10.4) fL Neut % (Auto) Pending Lymph % (Auto) Pending Sunflower % (Auto) Pending Eos % (Auto) Pending Baso % (Auto) Pending Absolute Neuts (auto) Pending Absolute Lymphs (auto) Pending Absolute Monos (auto) Pending Absolute Eos (auto) Pending Absolute Basos (auto) Pending Absolute Nucleated RBC Pending Nucleated RBC % Pending Sodium 135 (135-145) mmol/L Potassium 3.7 (3.5-5.0) mmol/L Chloride 102 (101-111) mmol/L Carbon Dioxide 27 (22-32) mmol/L Anion Gap 6 (2-11) mmol/L BUN 21 (6-24) mg/dL Creatinine 0.93 (0.67-1.17) mg/dL Est GFR ( Amer) 93.9 (>60) Est GFR (Non-Af Amer) 77.6 (>60) BUN/Creatinine Ratio 22.6 H (8-20) Glucose 127 H (70-100) mg/dL Lactic Acid 1.5 (0.5-2.0) mmol/L Calcium 9.4 (8.6-10.3) mg/dL Total Bilirubin 1.10 H (0.2-1.0) mg/dL AST 15 (13-39) U/L ALT 8 (7-52) U/L Alkaline Phosphatase 72 (34-104) U/L C-Reactive Protein Pending Total Protein 7.2 (6.4-8.9) g/dL Albumin 3.8 (3.2-5.2) g/dL Globulin 3.4 (2-4) g/dL Albumin/Globulin Ratio 1.1 (1-3) Microbiology and Other Data: Microbiology 11/21/18 16:42 Aerobic Blood Culture - Preliminary Blood Venous No Growth Day 1 Anaerobic Blood Culture - Preliminary No Growth Day 1 11/21/18 16:42 Aerobic Blood Culture - Preliminary Blood Venous No Growth Day 1 Anaerobic Blood Culture - Preliminary No Growth Day 1 11/21/18 17:42 Skin and Soft Tissue MRSA/MSSA (PCR - Final Face Mrsa Negative S.aureus Positive Gram Stain - Final Wound Culture - Preliminary Staphylococcus Aureus Assess/Plan/Problems-Billing Assessment: 83 yom with 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 - Patient Problems (1) Cellulitis and abscess of face Comment: -Appreciate ID input -Continue cefazolin, clindamycin -ENT consulted and recommends treatment of cellulitis with very close outpatient follow up to [place] -Discussed with nurse Jovana Waterman after she consulted with Dr. Schaefer. Recommendation is: cancel mandibular biopsy scheduled for Wednesday, and follow up with Dr. Schaefer in [place] on at 1100 (2) Congestive heart failure (CHF) Comment: -Most recent Echo shows EF of 35-40% -Pt appears euvolemic; lung sounds clear, oral mucosa moist -Continue to monitor (3) Atrial fibrillation Comment: -Rate controlled -Continue sotalol, apixaban -Continue metoprolol with hold parameters (4) Diabetes mellitus Comment: -Adequately controlled -Continue ss lispro (5) COPD (chronic obstructive pulmonary disease) Comment: -Not in acute exacerbation -Duonebs prn (6) CAD (coronary artery disease) Comment: -Continue atorvastatin (7) Full code status (8) DVT prophylaxis Comment: -Apixaban Status and Disposition: Inpatient. Discharge when stable. Possible mandibular biopsy tomorrow.
[2018-11-24] MEDS: Clindamycin 600 MG IVPREMIX(* 600 MG/50 ML SDV IV SCH (15:41)
[2018-11-25] MEDS: Clindamycin 600 MG IVPREMIX(* 600 MG/50 ML SDV IV SCH ×3 (00:31→16:16)
[2018-11-25] MEDS: ceFAZolin 2 GM PREMIX in ORs 2 GM/50 ML BAG IVPB SCH ×3 (06:05→23:09)
[2018-11-25] MEDS: Acetaminophen TAB* 325 MG PO PRN (06:22)
[2018-11-25 06:30] LABS: ABS Basophils 0.1 10^3/ul (0-0.2); ABS Eosinophils 0.1 10^3/ul (0-0.6); ABS Lymphocytes 0.4 10^3/ul (1.0-4.8); ABS Monocytes 0.5 10^3/ul (0-0.8); ABS Neutrophils 3.7 10^3/ul (1.5-7.7); ABS Nucleated RBC 0 10^3/ul; Eosinophil % 1.9 %; Hematocrit 31 % (36-46); Hemoglobin 10.3 g/dL (14.0-18.0); Lymphocyte % 8.9 %; Mean Corpuscular HGB Conc 34 g/dL (31-36); Mean Corpuscular Hemoglobin 32 pg (27-31); Mean Corpuscular Volume 94 fL (80-94); Mean Platelet Volume 10.4 fL (7.4-10.4); Nucleated Red Blood Cells % 0.1; Platelet Count 131 10^3/uL (150-450); Red Blood Count 3.24 10^6 /uL (4.18-5.48); Red Cell Distribution Width 16 % (10.5-15); White Blood Count 4.7 10^3/uL (3.5-10.8)
[2018-11-25 06:49] LABS: BUN/Creatinine Ratio 27.4 (8-20); C Reactive Protein 131.98 mg/L (<8.01); Calcium 8.5 mg/dL (8.6-10.3); EGFR African American 149.9 (>60); EGFR Non-African American 123.9 (>60); Potassium 3.9 mmol/L (3.5-5.0)
[2018-11-25] MEDS: Sotalol TAB* 80 MG PO SCH ×2 (09:21→21:19)
[2018-11-25] MEDS: Metoprolol Succinate XL TAB* 50 MG PO SCH ×2 (09:22→21:19)
[2018-11-25] MEDS: Insulin LISPRO* 1 UNITS UNIT SUBCUT SCH ×3 (09:22→16:56)
[2018-11-25] MEDS: Apixaban* 5 MG TAB PO SCH ×2 (09:22→21:19)
[2018-11-25] MEDS: Atorvastatin* 10 MG TAB PO SCH (09:22)
[2018-11-25] MEDS: Allopurinol TAB* 300 MG PO SCH (09:22)
--- NOTE | 2018-11-25 13:40 | PN ---
Progress Note - Progress Note Date of Service: 11/25/18 SOAP: Subjective: CC: Facial Cellulitis HPI: Mr. 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 Denies fever, chills, N/V/D or constipation. He feels like the skin on his face near his mandible line is still tighter today but slowly improving. He is anxious to get home today, discussed the importance of continued IV ABX. He states that he has a followup appointment with [place] on December 01 Objective: Vital Signs - 8 hr 11/25/18 11/25/18 11/25/18 07:05 08:00 11:12 Temperature 97.9 F 97.3 F Pulse Rate 83 90 Respiratory 16 16 20 Rate Blood Pressure 113/52 123/54 (mmHg) O2 Sat by Pulse 94 96 Oximetry Physical Exam: General: NAD, sitting up in a chair Neurological: Alert and Oriented HEENT:No thrush. There is dark colored crusting to the left side of the chin. There is swelling to the right side of the neck. The gomez is boggy and purulent drainage is expressed when palpating the chin. Cardiovascular: Heart rate regular Respiratory: Lungs clear bilateral Abdominal: bowel sounds present, ABD soft, non tender and non distended Skin: Improving erythema to the neck and mandible area. Laboratory Last Values WBC 4.7 10^3/uL (3.5-10.8) 11/25/18 06:09 RBC 3.24 10^6 /uL (4.18-5.48) L 11/25/18 06:09 Hgb 10.3 g/dL (14.0-18.0) L 11/25/18 06:09 Hct 31 % (36-46) L 11/25/18 06:09 MCV 94 fL (80-94) 11/25/18 06:09 MCH 32 pg (27-31) H 11/25/18 06:09 MCHC 34 g/dL (31-36) 11/25/18 06:09 RDW 16 % (10.5-15) H 11/25/18 06:09 Plt Count 131 10^3/uL (150-450) L 11/25/18 06:09 MPV 10.4 fL (7.4-10.4) 11/25/18 06:09 Neut % (Auto) 77.2 % 11/25/18 06:09 Lymph % (Auto) 8.9 % 11/25/18 06:09 [place] % (Auto) 10.8 % 11/25/18 06:09 Eos % (Auto) 1.9 % 11/25/18 06:09 Baso % (Auto) 1.2 % 11/25/18 06:09 Absolute Neuts (auto) 3.7 10^3/ul (1.5-7.7) 11/25/18 06:09 Absolute Lymphs (auto) 0.4 10^3/ul (1.0-4.8) L 11/25/18 06:09 Absolute Monos (auto) 0.5 10^3/ul (0-0.8) 11/25/18 06:09 Absolute Eos (auto) 0.1 10^3/ul (0-0.6) 11/25/18 06:09 Absolute Basos (auto) 0.1 10^3/ul (0-0.2) 11/25/18 06:09 Absolute Nucleated RBC 0 10^3/ul 11/25/18 06:09 Nucleated RBC % 0.1 11/25/18 06:09 Hem Pathologist Commnt 11/23/18 06:41 Sodium 136 mmol/L (135-145) 11/25/18 06:09 Potassium 3.9 mmol/L (3.5-5.0) 11/25/18 06:09 Chloride 104 mmol/L (101-111) 11/25/18 06:09 Carbon Dioxide 26 mmol/L (22-32) 11/25/18 06:09 Anion Gap 6 mmol/L (2-11) 11/25/18 06:09 BUN 17 mg/dL (6-24) 11/25/18 06:09 Creatinine 0.62 mg/dL (0.67-1.17) L 11/25/18 06:09 Est GFR ( Amer) 149.9 (>60) 11/25/18 06:09 Est GFR (Non-Af Amer) 123.9 (>60) 11/25/18 06:09 BUN/Creatinine Ratio 27.4 (8-20) H 11/25/18 06:09 Glucose 129 mg/dL (70-100) H 11/25/18 06:09 POC Glucose (mg/dL) 125 mg/dL (70-100) H 11/25/18 11:40 Lactic Acid 1.5 mmol/L (0.5-2.0) 11/21/18 16:42 Calcium 8.5 mg/dL (8.6-10.3) L 11/25/18 06:09 Total Bilirubin 1.10 mg/dL (0.2-1.0) H 11/21/18 16:42 AST 15 U/L (13-39) 11/21/18 16:42 ALT 8 U/L (7-52) 11/21/18 16:42 Alkaline Phosphatase 72 U/L (34-104) 11/21/18 16:42 C-Reactive Protein 131.98 mg/L (<8.01) H 11/25/18 06:09 Total Protein 7.2 g/dL (6.4-8.9) 11/21/18 16:42 Albumin 3.8 g/dL (3.2-5.2) 11/21/18 16:42 Globulin 3.4 g/dL (2-4) 11/21/18 16:42 Albumin/Globulin Ratio 1.1 (1-3) 11/21/18 16:42 Vancomycin Trough 13.8 mcg/mL 11/22/18 19:02 Microbiology 11/21/18 16:42 Aerobic Blood Culture - Preliminary Blood Venous No Growth Day 3 Anaerobic Blood Culture - Preliminary No Growth Day 3 11/21/18 16:42 Aerobic Blood Culture - Preliminary Blood Venous No Growth Day 3 Anaerobic Blood Culture - Preliminary No Growth Day 3 11/21/18 17:42 Skin and Soft Tissue MRSA/MSSA (PCR - Final Face Mrsa Negative S.aureus Positive Gram Stain - Final Wound Culture - Final Staphylococcus Aureus Assessment: 1. Left mandible soft tissue swelling and diffuse erythema and warmth from the angle of the mandible down to the chest with associated suspected abscess at the chin. Afebrile. Erythema is improving. History of hardware fixation, with recent concern for a screw backing out with a CT in 09/2018 showing erosive change around the medial aspect of the resection margin of the right mandible. Differential DX: Osteomyelitis of the jaw vs recurrence of neoplasm vs osteonecrosis. Biopsy at [facility] has been cancelled for next week. Plans for followup in [place] next week. Seen by ENT here and recommend followup in [place]. 2. Leukocytosis. Resolved. 3. History neck cancer. S/P resection in 1993 and then recurrence in 2015 with resection of the mandible and muscle flap. 4. CAD. Plan: Continue Ancef 2 g IV every 8 hours and Clindamycin 600 mg IV every 8 hours. Will need to continue the IV ABX until he has significant improvement in the soft tissue swelling. Will then need to be switched to oral ABX. Recommend calling to see if he can be seen sooner than in [place] next week. Antibiotics recommended for discharge: Augmentin for 14 days
--- NOTE | 2018-11-25 15:21 | PN ---
Subjective Date of Service: 11/25/18 Interval History: Mr. Baxter is feeling well today. He offers no complaints, but wants to go home. He feels as though the right side of his face has more sensation than it has had anytime recently. Because of this the area is more tender. He reports he has appointments he needs to bring his to on Wednesday and he is the one who typically drives so he needs to be out of the hospital by then. No concerns from nursing. Nursing updated family about plan. Family History: Unchanged from Admission Social History: Unchanged from Admission Past Medical History: Unchanged from Admission Objective Active Medications: Acetaminophen (Tylenol Tab*) 650 mg PO Q6H PRN FEVER/PAIN Albuterol/Ipratropium (Duoneb (Albuterol 2.5 Mg/Ipratropium 0.5 Mg)) 1 neb INH QID PRN SHORTNESS OF BREATH Allopurinol (Zyloprim Tab*) 300 mg PO QAM [facility] Apixaban (Eliquis*) 5 mg PO BID [facility] Atorvastatin Calcium (Lipitor*) 10 mg PO DAILY [facility] Dextrose (D50w Syringe 50 Ml*) 12.5 gm IV PUSH .FOR FS < 60 - SS PRN FS < 60 Cefazolin Sodium/Dextrose (Kefzol 2 Gm Premix In Ors(*)) 2 gm in 50 mls @ 100 mls/hr IVPB Q8H [facility] Clindamycin HCl/Dextrose (Cleocin 600 Mg Ivpremix(*) Sdv) 600 mg in 50 mls @ 100 mls/hr IV Q8H [facility] Insulin Human Lispro (Humalog*) 0 units SUBCUT AC [facility]; Protocol Loperamide HCl (Imodium Cap*) 2 mg PO .SEE DIRECTIONS PRN DIARRHEA Metoprolol Succinate (Toprol Xl Tab*) 50 mg PO BID [facility] Ondansetron HCl (Zofran Inj*) 4 mg IV Q8H PRN NAUSEA Oxycodone/Acetaminophen (Percocet 5/325 Tab*) 1 tab PO Q8H PRN PAIN Sotalol HCl (Betapace Tab*) 80 mg PO BID [facility] Vital Signs - 8 hr 11/25/18 11/25/18 08:00 11:12 Temperature 97.3 F Pulse Rate 90 Respiratory 16 20 Rate Blood Pressure 123/54 (mmHg) O2 Sat by Pulse 96 Oximetry Oxygen Devices in Use Now: None Appearance: Elderly male sitting in chair in NAD Eyes: No Scleral Icterus Ears/Nose/Mouth/Throat: Mucous Membranes Moist Neck: NL Appearance and Movements; NL JVP, Trachea Midline Respiratory: Symmetrical Chest Expansion and Respiratory Effort, Clear to Auscultation Cardiovascular: NL Sounds; No Murmurs; No JVD Abdominal: NL Sounds; No Tenderness; No Distention Extremities: - - Mild nonpitting to LUE Neurological: Alert and Oriented x 3 Lines/Tubes/Other Access: Clean, Dry and Intact Peripheral IV Nutrition: Taking PO's Result Diagrams: 11/25/18 06:09 11/25/18 06:09 Assess/Plan/Problems-Billing Assessment: Mr. 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 - Patient Problems (1) Cellulitis and abscess of face Code(s): L03.211 - CELLULITIS OF FACE; L02.01 - CUTANEOUS ABSCESS OF FACE Comment: - History of oral cancer s/p excision and muscle flap in 2016, presence of hardware; follows with Dr. Schaefer at [place] - One day of facial pain, erythema, and edema to right side of mandible prior to admission - CT on admission shows chronic erosive changes along the medial mandible ( neoplasm vs osteonecrosis), findings consistent with cellulitis, and nodular opacities in the right lung with ground glass appearance - Appreciate ENT consult; recommends antibiotics for cellulitis and f/u with MD at [place] - Appreciate ID consult - Case was previously discussed with Dr. Schaefer's nurse, Jovana Waterman, who consulted with Dr. Schaefer and recommendation is to cancel mandibular biopsy scheduled for Wednesday, and follow up with Dr. Schaefer in [place] on , , at 1100 - Continue cefazolin, clindamycin (2) History of head and neck cancer Code(s): Z85.89 - PERSONAL HISTORY OF MALIGNANT NEOPLASM OF ORGANS AND SYSTEMS Comment: - S/p excision and muscle flap 2015 - Follows with Dr. Schaefer at [place]; would benefit from additional outpatient imaging d/t nodular opacities noted on CT - Plan as above (3) Atrial fibrillation Code(s): I48.91 - UNSPECIFIED ATRIAL FIBRILLATION Comment: - Rate controlled - Continue sotalol, metoprolol, Eliquis (4) Congestive heart failure (CHF) Code(s): I50.9 - HEART FAILURE, UNSPECIFIED Comment: - No evidence of exacerbation - Most recent echo from 2016 shows EF of 35-40%; would benefit from repeat echo as an outpatient to reasses EF - Continue metoprolol (5) Diabetes mellitus Code(s): E11.9 - TYPE 2 DIABETES MELLITUS WITHOUT COMPLICATIONS Comment: - Good glucose control, BG 110-150s - A1c pending - Not on outpatient medication - Continue Lispro SS (6) COPD (chronic obstructive pulmonary disease) Code(s): J44.9 - CHRONIC OBSTRUCTIVE PULMONARY DISEASE, UNSPECIFIED Comment: - Not in exacerbation - Continue nebs PRN (7) CAD (coronary artery disease) Code(s): I25.10 - ATHSCL HEART DISEASE OF [place] CORONARY ARTERY W/O ANG PCTRS Comment: - Continue atorvastatin (8) DVT prophylaxis Comment: - Eliquis (9) Full code status Code(s): Z78.9 - OTHER SPECIFIED HEALTH STATUS Comment: Status and Disposition: Inpatient. Anticipate d/c home when medically stable, likely early next week. Attending: Brendan Meza
[2018-11-26] MEDS: Clindamycin 600 MG IVPREMIX(* 600 MG/50 ML SDV IV SCH ×3 (00:11→16:57)
[2018-11-26] MEDS: ceFAZolin 2 GM PREMIX in ORs 2 GM/50 ML BAG IVPB SCH ×3 (06:30→23:36)
[2018-11-26 07:07] LABS: ABS Basophils 0 10^3/ul (0-0.2); ABS Eosinophils 0.1 10^3/ul (0-0.6); ABS Lymphocytes 0.4 10^3/ul (1.0-4.8); ABS Monocytes 0.4 10^3/ul (0-0.8); ABS Neutrophils 2.4 10^3/ul (1.5-7.7); ABS Nucleated RBC 0 10^3/ul; Eosinophil % 2.8 %; Hematocrit 32 % (36-46); Hemoglobin 10.5 g/dL (14.0-18.0); Lymphocyte % 12.7 %; Mean Corpuscular HGB Conc 33 g/dL (31-36); Mean Corpuscular Hemoglobin 31 pg (27-31); Mean Corpuscular Volume 95 fL (80-94); Mean Platelet Volume 10.7 fL (7.4-10.4); Nucleated Red Blood Cells % 0.2; Platelet Count 154 10^3/uL (150-450); Red Blood Count 3.38 10^6 /uL (4.18-5.48); Red Cell Distribution Width 16 % (10.5-15); White Blood Count 3.3 10^3/uL (3.5-10.8)
[2018-11-26] MEDS: Insulin LISPRO* 1 UNITS UNIT SUBCUT SCH (08:25)
[2018-11-26] MEDS: Metoprolol Succinate XL TAB* 50 MG PO SCH ×2 (08:35→21:13)
[2018-11-26] MEDS: Allopurinol TAB* 300 MG PO SCH (08:35)
[2018-11-26] MEDS: Atorvastatin* 10 MG TAB PO SCH (08:35)
[2018-11-26] MEDS: Acetaminophen TAB* 325 MG PO PRN (08:36)
[2018-11-26] MEDS: Sotalol TAB* 80 MG PO SCH ×2 (08:36→21:13)
[2018-11-26] MEDS: Apixaban* 5 MG TAB PO SCH ×2 (08:36→21:12)
--- NOTE | 2018-11-26 11:35 | PN ---
Subjective Date of Service: 11/26/18 Interval History: Mr. Baxter is feeling fine this morning. He is frustrated that he is not able to get up and ambulate around the room independently. His pain in his jaw is unchanged. He denies SOB, CP, N/V. No concerns from nursing. Family History: Unchanged from Admission Social History: Unchanged from Admission Past Medical History: Unchanged from Admission Objective Active Medications: Acetaminophen (Tylenol Tab*) 650 mg PO Q6H PRN FEVER/PAIN Albuterol/Ipratropium (Duoneb (Albuterol 2.5 Mg/Ipratropium 0.5 Mg)) 1 neb INH QID PRN SHORTNESS OF BREATH Allopurinol (Zyloprim Tab*) 300 mg PO QAM [facility] Apixaban (Eliquis*) 5 mg PO BID [facility] Atorvastatin Calcium (Lipitor*) 10 mg PO DAILY [facility] Dextrose (D50w Syringe 50 Ml*) 12.5 gm IV PUSH .FOR FS < 60 - SS PRN FS < 60 Cefazolin Sodium/Dextrose (Kefzol 2 Gm Premix In Ors(*)) 2 gm in 50 mls @ 100 mls/hr IVPB Q8H [facility] Clindamycin HCl/Dextrose (Cleocin 600 Mg Ivpremix(*) Sdv) 600 mg in 50 mls @ 100 mls/hr IV Q8H [facility] Loperamide HCl (Imodium Cap*) 2 mg PO .SEE DIRECTIONS PRN [facility] Metoprolol Succinate (Toprol Xl Tab*) 50 mg PO BID [facility] Ondansetron HCl (Zofran Inj*) 4 mg IV Q8H PRN [facility] Oxycodone/Acetaminophen (Percocet 5/325 Tab*) 1 tab PO Q8H PRN PAIN Sotalol HCl (Betapace Tab*) 80 mg PO BID [facility] Oxygen Devices in Use Now: None Appearance: Elderly male laying in bed in NAD Eyes: No Scleral Icterus Ears/Nose/Mouth/Throat: Mucous Membranes Moist Neck: NL Appearance and Movements; NL JVP, Trachea Midline Respiratory: Symmetrical Chest Expansion and Respiratory Effort, Clear to Auscultation Cardiovascular: NL Sounds; No Murmurs; No JVD, RRR Abdominal: NL Sounds; No Tenderness; No Distention Extremities: - - Mild nonpitting to left hand Skin: - - Chin abscess with surrounding erythema Neurological: Alert and Oriented x 3 Lines/Tubes/Other Access: Clean, Dry and Intact Peripheral IV Nutrition: Taking PO's Result Diagrams: 11/26/18 06:45 11/25/18 06:09 Assess/Plan/Problems-Billing Assessment: Mr. 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 - Patient Problems (1) Cellulitis and abscess of face Code(s): L03.211 - CELLULITIS OF FACE; L02.01 - CUTANEOUS ABSCESS OF FACE Comment: - History of oral cancer s/p excision and muscle flap in 2016, presence of hardware; follows with Dr. Schaefer at [place] - One day of facial pain, erythema, and edema to right side of mandible prior to admission - CT on admission shows chronic erosive changes along the medial mandible ( neoplasm vs osteonecrosis), findings consistent with cellulitis, and nodular opacities in the right lung with ground glass appearance - Appreciate ENT consult; recommends antibiotics for cellulitis and f/u with at [place] - Appreciate ID consult - Case was previously discussed with Dr. Schaefer's nurse, Jovana Waterman, who consulted with Dr. Schaefer and recommendation is to cancel mandibular biopsy scheduled for Wednesday, and follow up with Dr. Schaefer in [place] on , , at 1100 but case management will attempt to get an appointment for earlier in the week - Continue cefazolin, clindamycin (2) History of head and neck cancer Code(s): Z85.89 - PERSONAL HISTORY OF MALIGNANT NEOPLASM OF ORGANS AND SYSTEMS Comment: - S/p excision and muscle flap 2016 - Follows with Dr. Schaefer at [place]; would benefit from additional outpatient imaging d/t nodular opacities noted on CT - Plan as above (3) Atrial fibrillation Code(s): I48.91 - UNSPECIFIED ATRIAL FIBRILLATION Comment: - Rate controlled - Continue sotalol, metoprolol, Eliquis (4) Congestive heart failure (CHF) Code(s): I50.9 - HEART FAILURE, UNSPECIFIED Comment: - No evidence of exacerbation - Most recent echo from 2016 shows EF of 35-40%; would benefit from repeat echo as an outpatient to reasses EF - Continue metoprolol (5) Diabetes mellitus Code(s): E11.9 - TYPE 2 DIABETES MELLITUS WITHOUT COMPLICATIONS Comment: - Good glucose control, BG 110-150s; will decrease finger sticks to daily - A1c pending - Not on outpatient medication (6) COPD (chronic obstructive pulmonary disease) Code(s): J44.9 - CHRONIC OBSTRUCTIVE PULMONARY DISEASE, UNSPECIFIED Comment: - Not in exacerbation - Continue nebs PRN (7) CAD (coronary artery disease) Code(s): I25.10 - ATHSCL HEART DISEASE OF [place] CORONARY ARTERY W/O ANG PCTRS Comment: - Continue atorvastatin (8) DVT prophylaxis Comment: - Eliquis (9) Full code status Code(s): Z78.9 - OTHER SPECIFIED HEALTH STATUS Comment: Status and Disposition: Inpatient. Anticipate d/c home when medically stable, likely early next week with plans for close follow up at [place]. Attending: Brendan Meza
[2018-11-27] MEDS: Clindamycin 600 MG IVPREMIX(* 600 MG/50 ML SDV IV SCH ×3 (00:28→16:59)
[2018-11-27] MEDS: ceFAZolin 2 GM PREMIX in ORs 2 GM/50 ML BAG IVPB SCH ×3 (07:30→23:40)
[2018-11-27] MEDS: Metoprolol Succinate XL TAB* 50 MG PO SCH ×2 (10:04→20:37)
[2018-11-27] MEDS: Sotalol TAB* 80 MG PO SCH ×2 (10:05→20:37)
[2018-11-27] MEDS: Atorvastatin* 10 MG TAB PO SCH (10:05)
[2018-11-27] MEDS: Apixaban* 5 MG TAB PO SCH ×2 (10:06→20:37)
[2018-11-27] MEDS: Allopurinol TAB* 300 MG PO SCH (10:06)
--- NOTE | 2018-11-27 14:49 | PN ---
Subjective Date of Service: 11/27/18 Interval History: Mr. Baxter is frustrated about being in the hospital. On my arrival he was drinking from a milk carton and expressed difficulty with that, though this has been the case since his initial surgery. He is also frustrated about not being able to ambulate independently. He feels like the swelling has gone down in his chin, but notes swelling in his neck that he feels is hard to the touch. Denies difficulty breathing or SOB. No CP, N/V. No concerns from nursing. Family History: Unchanged from Admission Social History: Unchanged from Admission Past Medical History: Unchanged from Admission Objective Active Medications: Acetaminophen (Tylenol Tab*) 650 mg PO Q6H PRN FEVER/PAIN Albuterol/Ipratropium (Duoneb (Albuterol 2.5 Mg/Ipratropium 0.5 Mg)) 1 neb INH QID PRN SHORTNESS OF BREATH Allopurinol (Zyloprim Tab*) 300 mg PO QAM [facility] Apixaban (Eliquis*) 5 mg PO BID [facility] Atorvastatin Calcium (Lipitor*) 10 mg PO DAILY [facility] Dextrose (D50w Syringe 50 Ml*) 12.5 gm IV PUSH .FOR FS < 60 - SS PRN FS < 60 Cefazolin Sodium/Dextrose (Kefzol 2 Gm Premix In Ors(*)) 2 gm in 50 mls @ 100 mls/hr IVPB Q8H [facility] Clindamycin HCl/Dextrose (Cleocin 600 Mg Ivpremix(*) Sdv) 600 mg in 50 mls @ 100 mls/hr IV Q8H [facility] Loperamide HCl (Imodium Cap*) 2 mg PO .SEE DIRECTIONS PRN DIARR[facility] Metoprolol Succinate (Toprol Xl Tab*) 50 mg PO BID [facility] Ondansetron HCl (Zofran Inj*) 4 mg IV Q8H PRN NAUSEA Oxycodone/Acetaminophen (Percocet 5/325 Tab*) 1 tab PO Q8H PRN PAIN Sotalol HCl (Betapace Tab*) 80 mg PO BID [facility] Oxygen Devices in Use Now: None Appearance: Elderly male sitting in bed in NAD Eyes: No Scleral Icterus Ears/Nose/Mouth/Throat: Mucous Membranes Moist Neck: NL Appearance and Movements; NL JVP, Trachea Midline, - - Mild edema to anterior neck without obvious involvement of the respiratory tract Respiratory: Symmetrical Chest Expansion and Respiratory Effort, Clear to Auscultation Cardiovascular: NL Sounds; No Murmurs; No JVD, - - Irregular Extremities: - - Abscess and surrounding erythema to chin Neurological: Alert and Oriented x 3 Lines/Tubes/Other Access: Clean, Dry and Intact Peripheral IV Nutrition: Taking PO's Result Diagrams: 11/26/18 06:45 11/25/18 06:09 Assess/Plan/Problems-Billing Assessment: Mr. 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 - Patient Problems (1) Cellulitis and abscess of face Code(s): L03.211 - CELLULITIS OF FACE; L02.01 - CUTANEOUS ABSCESS OF FACE Comment: - History of oral cancer s/p excision and muscle flap in 2016, presence of hardware; follows with Dr. Schaefer at [place] - One day of facial pain, erythema, and edema to right side of mandible prior to admission; symptoms improving - CT on admission shows chronic erosive changes along the medial mandible ( neoplasm vs osteonecrosis), findings consistent with cellulitis, and nodular opacities in the right lung with ground glass appearance - Appreciate ENT consult; recommends antibiotics for cellulitis and f/u with MD at [place] - Appreciate ID consult; recommends continuing current abx and 14 day course of Augmentin at d/c - Case was previously discussed with Dr. Schaefer's nurse, Jovana Waterman, who consulted with Dr. Schaefer and recommendation is to cancel mandibular biopsy scheduled for Wednesday, and follow up with Dr. Schaefer in [place] on , , at 1100 but case management will attempt to get an appointment for earlier in the week - Continue cefazolin, clindamycin (2) History of head and neck cancer Code(s): Z85.89 - PERSONAL HISTORY OF MALIGNANT NEOPLASM OF ORGANS AND SYSTEMS Comment: - S/p excision and muscle flap 2015 - Follows with Dr. Schaefer at [place]; would benefit from additional outpatient imaging d/t nodular opacities noted on CT - Plan as above (3) Atrial fibrillation Code(s): I48.91 - UNSPECIFIED ATRIAL FIBRILLATION Comment: - Rate controlled - Continue sotalol, metoprolol, Eliquis (4) Congestive heart failure (CHF) Code(s): I50.9 - HEART FAILURE, UNSPECIFIED Comment: - No evidence of exacerbation - Most recent echo from 2016 shows EF of 35-40%; would benefit from repeat echo as an outpatient to reasses EF - Continue metoprolol (5) Diabetes mellitus Code(s): E11.9 - TYPE 2 DIABETES MELLITUS WITHOUT COMPLICATIONS Comment: - A1c 5.1%, so no active diagnosis of DM (6) COPD (chronic obstructive pulmonary disease) Code(s): J44.9 - CHRONIC OBSTRUCTIVE PULMONARY DISEASE, UNSPECIFIED Comment: - Not in exacerbation - Continue nebs PRN (7) CAD (coronary artery disease) Code(s): I25.10 - ATHSCL HEART DISEASE OF [place] CORONARY ARTERY W/O ANG PCTRS Comment: - Continue atorvastatin (8) DVT prophylaxis Comment: - Eliquis (9) Full code status Code(s): Z78.9 - OTHER SPECIFIED HEALTH STATUS Comment: Status and Disposition: Inpatient. Anticipate d/c home when medically stable, likely early next week with plans for close follow up at [place]. Attending: Brendan Meza
[2018-11-28] MEDS: Clindamycin 600 MG IVPREMIX(* 600 MG/50 ML SDV IV SCH ×2 (01:16→08:47)
[2018-11-28] MEDS: ceFAZolin 2 GM PREMIX in ORs 2 GM/50 ML BAG IVPB SCH (07:09)
[2018-11-28] MEDS: Atorvastatin* 10 MG TAB PO SCH (08:48)
[2018-11-28] MEDS: Allopurinol TAB* 300 MG PO SCH (08:48)
[2018-11-28] MEDS: Sotalol TAB* 80 MG PO SCH (08:48)
[2018-11-28] MEDS: Metoprolol Succinate XL TAB* 50 MG PO SCH (08:49)
[2018-11-28] MEDS: Apixaban* 5 MG TAB PO SCH (08:49)
[2018-11-28] MEDS: Acetaminophen TAB* 325 MG PO PRN (08:51)
--- NOTE | 2018-11-28 08:56 | PN ---
Progress Note - Progress Note Date of Service: 11/28/18 SOAP: Subjective: CC: Facial Cellulitis HPI: Mr. 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 Denies fever, chills, N/V/D or constipation. He feels like he has had improvement in the swelling of his face and neck over the weekend. He is anxious to get home today , discussed the importance of following up with ENT in [facility] this week. Objective: Vital Signs - 8 hr 11/28/18 11/28/18 11/28/18 02:32 07:21 07:55 Temperature 97.5 F Pulse Rate 82 Respiratory 17 18 18 Rate Blood Pressure 130/74 (mmHg) O2 Sat by Pulse 95 Oximetry Physical Exam: General: NAD, sitting up on the side of the bed HEENT: No thrush Neurological: Alert and Oriented Cardiovascular: Heart rate irregular Respiratory: Lung sounds clear, bilateral Abdominal: Bowel sounds present, ABD soft, non tender and non distended Skin: Erythema to neck and mandible has resolved. There is a small amount of erythema on the chin. There is crusty drainage on the chin Laboratory Last Values WBC 3.3 10^3/uL (3.5-10.8) L 11/28/18 08:19 RBC 3.57 10^6 /uL (4.18-5.48) L 11/28/18 08:19 Hgb 11.1 g/dL (14.0-18.0) L 11/28/18 08:19 Hct 33 % (36-46) L 11/28/18 08:19 MCV 93 fL (80-94) 11/28/18 08:19 MCH 31 pg (27-31) 11/28/18 08: MCHC 33 g/dL (31-36) 11/28/18: RDW 16 % (10.5-15) H 11/28/18 08:19 Plt Count 205 10^3/uL (150-450) 11/28/18 08:19 MPV 10.0 fL (7.4-10.4) 11/28/18 08: Neut % (Auto) 62.5 % 11/28/18 08:19 Lymph % (Auto) 19.5 % 11/28/18 08:19 Becker % (Auto) 12.8 % 11/28/18 08:19 Eos % (Auto) 3.1 % 11/28/18 08:19 Baso % (Auto) 2.1 % 11/28/18 08:19 Absolute Neuts (auto) 2.0 10^3/ul (1.5-7.7) 11/28/18 08:19 Absolute Lymphs (auto) 0.6 10^3/ul (1.0-4.8) L 11/28/18 08:19 Absolute Monos (auto) 0.4 10^3/ul (0-0.8) 11/28/18 08:19 Absolute Eos (auto) 0.1 10^3/ul (0-0.6) 11/28/18 08:19 Absolute Basos (auto) 0.1 10^3/ul (0-0.2) 11/28/18 08:19 Absolute Nucleated RBC 0 10^3/ul 11/28/18 08:19 Nucleated RBC % 0.1 11/28/18 08:19 Hem Pathologist Commnt 11/23/18 06:41 Sodium 136 mmol/L (135-145) 11/25/18 06:09 Potassium 3.9 mmol/L (3.5-5.0) 11/25/18 06:09 Chloride 104 mmol/L (101-111) 11/25/18 06:09 Carbon Dioxide 26 mmol/L (22-32) 11/25/18 06:09 Anion Gap 6 mmol/L (2-11) 11/25/18 06:09 BUN 17 mg/dL (6-24) 11/25/18 06:09 Creatinine 0.62 mg/dL (0.67-1.17) L 11/25/18 06:09 Est GFR ( Amer) 149.9 (>60) 11/25/18 06:09 Est GFR (Non-Af Amer) 123.9 (>60) 11/25/18 06:09 BUN/Creatinine Ratio 27.4 (8-20) H 11/25/18 06:09 Glucose 129 mg/dL (70-100) H 11/25/18 06:09 POC Glucose (mg/dL) 109 mg/dL (70-100) H 11/27/18 07:34 Hemoglobin A1c 5.1 % (4.0-5.6) 11/25/18 06:09 Lactic Acid 1.5 mmol/L (0.5-2.0) 11/21/18 16:42 Calcium 8.5 mg/dL (8.6-10.3) L 11/25/18 06:09 Total Bilirubin 1.10 mg/dL (0.2-1.0) H 11/21/18 16:42 AST 15 U/L (13-39) 11/21/18 16:42 ALT 8 U/L (7-52) 11/21/18 16:42 Alkaline Phosphatase 72 U/L (34-104) 11/21/18 16:42 C-Reactive Protein 131.98 mg/L (<8.01) H 11/25/18 06:09 Total Protein 7.2 g/dL (6.4-8.9) 11/21/18 16:42 Albumin 3.8 g/dL (3.2-5.2) 11/21/18 16:42 Globulin 3.4 g/dL (2-4) 11/21/18 16:42 Albumin/Globulin Ratio 1.1 (1-3) 11/21/18 16:42 Vancomycin Trough 13.8 mcg/mL 11/22/18 19:02 Microbiology 11/21/18 16:42 Aerobic Blood Culture - Final Blood Venous No Growth Day 5 Anaerobic Blood Culture - Final No Growth Day 5 11/21/18 16:42 Aerobic Blood Culture - Final Blood Venous No Growth Day 5 Anaerobic Blood Culture - Final No Growth Day 5 11/21/18 17:42 Skin and Soft Tissue MRSA/MSSA (PCR - Final Face Mrsa Negative S.aureus Positive Gram Stain - Final Wound Culture - Final Staphylococcus Aureus Assessment: 1. Left mandible soft tissue swelling, erythema with associated suspected abscess at the chin. Afebrile. Erythema has mostly resolved. History of hardware fixation, with recent concern for a screw backing out with a CT in 2018 showing erosive change around the medial aspect of the resection margin of the right mandible. Skin culture on admission, growing staph aureus. Differential DX: Osteomyelitis of the jaw vs recurrence of neoplasm vs osteonecrosis. Biopsy at [facility] has been cancelled for this week. Plans for followup in [place] later this week. Seen by ENT here and recommend followup in [place]. 2. Leukocytosis. Resolved. 3. History neck cancer. S/P resection in 1993 and then recurrence in 2015 with resection of the mandible and muscle flap. 4. CAD. Plan: Continue Ancef 2 g IV every 8 hours and Clindamycin 600 mg IV every 8 hours while here. Will need to be switched to oral ABX at discharge, Augmentin for 14 days. Recommend calling to see if he can be seen sooner than in [place] next week.
[2018-11-28 08:59] LABS: ABS Basophils 0.1 10^3/ul (0-0.2); ABS Eosinophils 0.1 10^3/ul (0-0.6); ABS Lymphocytes 0.6 10^3/ul (1.0-4.8); ABS Monocytes 0.4 10^3/ul (0-0.8); ABS Nucleated RBC 0 10^3/ul; Eosinophil % 3.1 %; Hematocrit 33 % (36-46); Hemoglobin 11.1 g/dL (14.0-18.0); Lymphocyte % 19.5 %; Mean Corpuscular HGB Conc 33 g/dL (31-36); Mean Corpuscular Hemoglobin 31 pg (27-31); Mean Corpuscular Volume 93 fL (80-94); Nucleated Red Blood Cells % 0.1; Platelet Count 205 10^3/uL (150-450); Red Blood Count 3.57 10^6 /uL (4.18-5.48); Red Cell Distribution Width 16 % (10.5-15); White Blood Count 3.3 10^3/uL (3.5-10.8)
[2018-11-28 11:15] VITALS: BP 132/71
--- NOTE | 2018-11-29 03:17 | DS ---
CC: Dr. Richard Peterson; Dr. Juan Schaefer * DISCHARGE SUMMARY: DATE OF ADMISSION: 11/21/18 DATE OF DISCHARGE: 11/28/18 PRIMARY CARE PROVIDER: Dr. Richard Peterson. ONCOLOGIST: Dr. Juan Schaefer at [place]. ATTENDING PHYSICIAN: Dr. Brendan Meza * (dictated by Allegra Babb NP). PRIMARY DIAGNOSES: 1. Cellulitis and abscess of chin and right mandible. 2. History of head and neck cancer. SECONDARY DIAGNOSES: 1. Atrial fibrillation. 2. Chronic systolic congestive heart failure. 3. Diabetes mellitus type 2. 4. Chronic obstructive pulmonary disease. 5. Coronary artery disease. STUDIES WHILE IN THE HOSPITAL: Neck CT on 11/21/18 reads as chronic unchanged erosive changes along the medial surgical margin of he parasymphyseal mandible, which could reflect locally recurrent neoplasm versus osteonecrosis. New Subcutaneous soft tissue stranding and thickening overlying the right mandible hardware. Findings could reflect cellulitis. No adjacent drainable fluid collection noted. Multiple nodular opacities in the partially visualized right lung, largest measuring 0.7 cm. Nonspecific ground-glass attenuation of the partially visualized lingula. Correlate with dedicated chest imaging. CONSULTATIONS WHILE IN THE HOSPITAL: 1. The patient was seen in consultation by both Dr. Garcia and Darlin Quinn NP, from Infectious Disease throughout this hospital stay. 2. The patient was seen by Dr. Salvador from ENT on 11/23/18. HISTORY OF PRESENT ILLNESS AND HOSPITAL COURSE: Mr. Baxter is an 83-year-old male with past medical history of oral cancer, status post soft palate and muscle flap resection in 2016, diabetes, AFib, CAD, systolic heart failure, hyperlipidemia, hypertension, and obstructive sleep apnea who presented to the emergency room on 11/21/18 with complaints of facial swelling, please see the history and physical by Dr. Paul for complete summary of the events leading up to this hospitalization. In short, the patient has a significant surgical history to his right mandible and follows with Dr. Schaefer at [place]. There is hardware present in his right mandible, and because of that, there was a significant concern for cellulitis and deeper infection. The patient had noted his symptoms to become significantly worse 24 hours prior to admission, In the emergency room, the patient's surgical team in [place] was contacted, though at that point they did not have a bed and they recommended that the patient be admitted here for IV antibiotics and to transfer if the patient required surgical intervention. In the emergency room, the patient had imaging as noted above. He had lab work which was remarkable for a leukocytosis with a white blood count of 13. He additionally was noted to have an elevated CRP at 90. He did not meet sepsis criteria, though because of the concern for cellulitis and abscess, he was admitted by the hospitalist service. Infectious Disease was consulted and the patient was seen by Dr. Garcia on . At that point, he recommended stopping vancomycin and cefepime which were started in the emergency room and starting the patient on Ancef. He felt he was necessary to continue IV antibiotics until there was significant improvement in the soft tissue component of his infection. The patient's white blood count did peak on 11/22/18 on 16.6. The patient did meet sepsis criteria with a T-max of 101.2 and tachycardia into the one teens, though at that point he already been receiving antibiotics. The patient was seen by Dr. Salvador from ENT, who recommended continuing the patient on IV antibiotics and having the patient to follow up in [place] when he is more medically stable. There is a concern that surgical intervention may ultimately be required. The patient 's cellulitis continued to improve. I will note that although the CT scan did not show appreciable abscess, there was an obvious abscess on clinical exam to the patient's chin and this was expressible draining purulent matter. Infectious Disease continued to follow the patient. He was initially scheduled for a mandible biopsy on 11/28/18, though ultimately that biopsy was canceled per recommendations from Dr. Schaefer. Clindamycin was added to the patient's antibiotic regimen. The patient's cellulitis continued to improve, and as of today, the erythema is markedly reduced, although there is still some erythema to the right mandible. There is still an abscess on the chin, though this has reduced in size within the last couple of days. There is some associated superficial edema to the patient's anterior neck, though there is no respiratory compromise involved. I did speak with Infectious Disease and they cleared the patient for discharge with close followup with the patient's primary oncologist. Our team was able to schedule the patient an appointment for , 12/01/18. We did recommend that the patient try to get in sooner , though the patient reports that this is the soon as he is able to get up to [place] due to the transportation and family concerns. Infectious Disease recommended an additional 14 days of Augmentin after discharge. The patient is interested to leave today. On exam, he is alert and oriented. Lung sounds are clear to auscultation on room air. Heart rate is irregular, consistent with his history of atrial fibrillation. No murmurs, rubs, or gallops. I did additionally note the diabetes is listed as a past medical problem for the patient, although I did check an A1c while he was here and that is noted to be 5.1. The patient had not been on any outpatient medication, so at this point, the patient is not a diabetic and does not require any treatment. Mr. Baxter is stable for discharge today. Vital signs are as follows: Temp 97.5, heart rate 82, respiratory rate 16, oxygen saturation 100% on room air, blood pressure 132/71. DISCHARGE MEDICATIONS: New medications: 1. Augmentin 875 mg p.o. b.i.d. x14 days. 2. Imodium 2 mg after each loose bowel movement. 3. Oxycodone/acetaminophen 5/325 mg 1 tab p.o. q.8 hours p.r.n. pain, max daily dose 3 tabs, dispensed #15. Continued medications: 1. Acetaminophen 650 mg p.o. t.i.d. 2. DuoNeb 1 neb 4 times a day p.r.n. shortness of breath. 3. Allopurinol 300 mg p.o. daily. 4. Apixaban 5 mg p.o. b.i.d. 5. Metoprolol succinate 50 mg p.o. b.i.d. 6. Multivitamin 1 tab p.o. daily. 7. Simvastatin 20 mg p.o. daily. 8. Sotalol 80 mg p.o. b.i.d. 9. Triamcinolone 0.1% one application topically b.i.d. DISCHARGE PLAN: Mr. Baxter will be discharged to home. Activity will be as tolerated. Diet will be regular as tolerated. Medications noted above. The patient has been prescribed a 14-day course of Augmentin per instructions from Infectious Disease. He additionally has been given a month's supply of Percocet for pain that he is experiencing at the site of cellulitis. I have advised him that he may take Imodium for any antibiotic-induced diarrhea. He can continue his other usual medications as noted above. As I previously noted , the patient will require a close followup with his oncologist, Dr. Schaefer, at [place] and it has been recommended that the patient to see Dr. Schaefer within the next 1 to 2 days, so the patient is not able to get up to [place] until , so the patient does have an appointment on 12/01/18 at 8 a.m. Further management of his cellulitis can be determined at that time. The patient will need to follow up with his primary care provider in 4 to 7 days. He should return to the emergency room or nearest hospital for any worsening of symptoms, shortness of breath, lightheadedness, dizziness, chest discomfort, high fever, chills, night sweats, loss of consciousness, or any other worrisome signs or symptoms. DISCHARGE CONDITION: Stable. DISCHARGE DISPOSITION: Home. This is a summarized report of a complex medical history and hospital stay. For further details, please see the entire medical record. TIME SPENT: Approximately 50 minutes was spent on this discharge. ALLEGRA BABB NP [id number]/[facility] #: [id number] AMBROSE
== END 2018-11-28 14:30 | disposition home or self-care (01) | DRG 602 ==
LOC: ED 15:20 → MED 19:48
PROVIDERS: ADMIT Internal Medicine; ATTEND Internal Medicine
DX: L03.211 Cellulitis of face (principal); A41.9 Sepsis, unspecified organism; E87.1 Hypo-osmolality and hyponatremia; L02.01 Cutaneous abscess of face; I50.22 Chronic systolic (congestive) heart failure; I48.0 Paroxysmal atrial fibrillation; I25.10 Atherosclerotic heart disease of native coronary artery without angina pectoris; E78.00 Pure hypercholesterolemia, unspecified; J44.9 Chronic obstructive pulmonary disease, unspecified; N40.0 Benign prostatic hyperplasia without lower urinary tract symptoms; M41.9 Scoliosis, unspecified; E11.51 Type 2 diabetes mellitus with diabetic peripheral angiopathy without gangrene; G47.33 Obstructive sleep apnea (adult) (pediatric); E78.5 Hyperlipidemia, unspecified; I87.8 Other specified disorders of veins; M10.9 Gout, unspecified; D69.6 Thrombocytopenia, unspecified; M17.0 Bilateral primary osteoarthritis of knee; Z98.42 Cataract extraction status, left eye; Z98.41 Cataract extraction status, right eye; Z87.891 Personal history of nicotine dependence; Z82.49 Family history of ischemic heart disease and other diseases of the circulatory system; Z95.810 Presence of automatic (implantable) cardiac defibrillator; Z83.3 Family history of diabetes mellitus; Z72.89 Other problems related to lifestyle; Z85.828 Personal history of other malignant neoplasm of skin; Z85.818 Personal history of malignant neoplasm of other sites of lip, oral cavity, and pharynx; Z89.421 Acquired absence of other right toe(s); Z90.49 Acquired absence of other specified parts of digestive tract; Z79.01 Long term (current) use of anticoagulants; D64.9 Anemia, unspecified
CPT/HCPCS: 36415; 70491; 80048; 80053; 80202; 83036; 83605; 85025; 85060; 86140; 87040; 87070; 87077; 87186; 87205; 87640; 87641; 94640; 99284; A9270-GY; J0690; J0692; J3370; Q9967

== ENCOUNTER 2018-12-13 18:19 | Emergency (ER) | payer MEDICARE ==
[2018-12-13 19:29] LABS: Urine Appearance Clear; Urine Bilirubin Negative (Negative); Urine Blood Negative (Negative); Urine Color Yellow; Urine Glucose Negative (Negative); Urine Ketones Negative (Negative); Urine Nitrite Negative (Negative); Urine Protein Negative (Negative); Urine Specific Gravity 1.021 (1.010-1.030); Urine Urobilinogen Negative (Negative)
[2018-12-13 19:39] LABS: ABS Basophils 0.1 10^3/ul (0-0.2); ABS Lymphocytes 0.6 10^3/ul (1.0-4.8); ABS Monocytes 0.5 10^3/ul (0-0.8); ABS Neutrophils 5.4 10^3/ul (1.5-7.7); Eosinophil % 0.2 %; Hematocrit 40 % (42-52); Hemoglobin 13.4 g/dL (14.0-18.0); Lymphocyte % 8.9 %; Mean Corpuscular HGB Conc 34 g/dL (31-36); Mean Corpuscular Hemoglobin 31 pg (27-31); Mean Corpuscular Volume 93 fL (80-94); Mean Platelet Volume 11.8 fL (7.4-10.4); Nucleated Red Blood Cells % 0.1; Platelet Count 146 10^3/uL (150-450); Red Cell Distribution Width 16 % (10.5-15); White Blood Count 6.6 10^3/uL (3.5-10.8)
[2018-12-13 19:53] LABS: Albumin 3.6 g/dL (3.2-5.2); BUN/Creatinine Ratio 29.6 (8-20); C Reactive Protein 5.58 mg/L (<8.01); Calcium 9.5 mg/dL (8.6-10.3); EGFR African American 128.2 (>60); Globulin 3.5 g/dL (2-4); Potassium 3.4 mmol/L (3.5-5.0); Total Bilirubin 0.6 mg/dL (0.2-1.0); Total Protein 7.1 g/dL (6.4-8.9)
--- NOTE | 2018-12-13 20:44 | ED ---
GI/ HPI - HPI Summary HPI Summary: Patient complains of urinary retention 2 days with associated lower abdominal pain and nausea. Also complains of diarrhea since discharge from [facility] on . History of prior C. difficile infection. Patient was admitted for infection of the jaw, and received multiple antibiotics IV, also took 12 days of Augmentin by mouth after discharge. Patient states he did not finish last 2 days of Augmentin.. Patient also states history of prostate disease with history of urinary retention. Urologist . Denies fever, cough, sore throat, CP, SOB, N/V/D, blood in stool, penile or testicular symptoms. - History of Current Complaint Chief Complaint: EDWeakness Time Seen by Provider: 12/13/18 18:41 Stated Complaint: UNABLE TO URINATE PER EMS Hx Obtained From: Patient Onset/Duration: Started Days Ago Timing: Constant Severity: Moderate Current Severity: Moderate Pain Intensity: 5 Location of Pain: Suprapubic Pain Characteristics: Cramping Associated Signs and Symptoms: Positive: Nausea, Diarrhea, Dysuria Aggravating Factor(s): Nothing Alleviating Factor(s): Nothing - Additional Pertinent History Primary Care Physician: ROXANNA - Allergy/Home Medications Allergies/Adverse Reactions: Allergies Allergy/AdvReac Type Severity Reaction Status Date / Time No Known Allergies Allergy Verified 12/13/18 20:18 PMH/Surg Hx/FS Hx/Imm Hx Endocrine/Hematology History: Reports: 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 Cardiovascular History: Reports: Hx Auto Implanted Cardiovert Defib, Hx Cardiomegaly - SLIGHTLY ENLARGED, Hx Congestive Heart Failure, Hx Coronary Artery Disease, Hx Hypercholesterolemia, Hx Hypertension, Hx Pacemaker/ICD - ICD , Hx Peripheral Vascular Disease, Other Cardiovascular Problems/Disorders - 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, Hx SVT, paroxysmal A fib Respiratory History: Reports: Hx Chronic Obstructive Pulmonary Disease (COPD), Hx Sleep Apnea, Other Respiratory Problems/Disorders - COPD History: Reports: Hx Benign Prostatic Hyperplasia - TURP 06/08/16, Other Problems/Disorders - Hx Urinary retention Denies: Hx Dialysis, Hx Renal Disease Musculoskeletal History: Reports: Hx Arthritis - BILATERAL KNEES, Hx Scoliosis, Other Musculoskeletal History - CURVATURE OF BACK Sensory History: Reports: Hx Cataracts - BILATERAL- REMOVED, Hx Contacts or Glasses - at home, doesn't use them any more Denies: Hx Deafness, Hx Hearing Aid, Hx Hearing Problem Opthamlomology History: Reports: Hx Cataracts - BILATERAL- REMOVED, Hx Contacts or Glasses - at home, doesn't use them any more - Cancer History Cancer Type, Location and Year: Oral cancer- head and neck, Current. skin cancer Hx Chemotherapy: No - RADIATION Hx Radiation Therapy: Yes - Surgical History Surgery Procedure, Year, and Place: 05/2016 TURP -[facility]. 01/2016 R Mandiblectomy. 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 2012 DEFIBRILLATOR INSERTED, [place]. 1993 CANCER OF SOFT PALATE EXCISON, [facility]. 2010 LASER SURGER OF LEFT PALATE, OFFICE. SKIN CANCER BIOPSY RIGHT FOREARM, OFFICE. BIOPSY RIGHT LEG, OFFICE. DEPUTYRENS CONTRACTURE BILATERAL HANDS, [facility] AND [place]. cholecystectomy, CATARACT SURGERY - [facility] Hx Anesthesia Reactions: No Infectious Disease History: No Infectious Disease History: Reports: Hx Shingles - 30 years ago Denies: Traveled Outside the [place] in Last 30 Days - Family History Known Family History: Positive: Cardiac Disease, Hypertension, Diabetes - Social History Alcohol Use: None Alcohol Amount: did have 4 beers on Wednesday after 2 years dry Hx Substance Use: No Substance Use Type: Reports: None Hx Tobacco Use: Yes Smoking Status (MU): Former Smoker Have You Smoked in the Last Year: No Review of Systems Constitutional: Negative Eyes: Negative ENT: Negative Cardiovascular: Negative Respiratory: Negative Positive: Diarrhea Positive: dysuria Musculoskeletal: Negative Skin: Negative Neurological: Negative Psychological: Normal All Other Systems Reviewed And Are Negative: Yes Physical Exam - Summary Physical Exam Summary: Mild tenderness to palpation suprapubically. Abdominal exam otherwise unremarkable. No peripheral edema. Lung sounds clear to auscultation bilaterally. RRR. Triage Information Reviewed: Yes Vital Signs On Initial Exam: Initial Vitals Temp Pulse Resp BP Pulse Ox 96.2 F 112 18 140/94 97 12/13/18 18:24 12/13/18 18:24 12/13/18 18:24 12/13/18 18:24 12/13/18 18:24 Vital Signs Reviewed: Yes Appearance: Positive: Well-Appearing Skin: Positive: Warm Head/Face: Positive: Normal Head/Face Inspection Eyes: Positive: Normal Neck: Positive: Supple Respiratory/Lung Sounds: Positive: Clear to Auscultation Cardiovascular: Positive: Normal Abdomen Description: Positive: Other: Musculoskeletal: Positive: Normal Neurological: Positive: Normal Psychiatric: Positive: Normal AVPU Assessment: Alert - Salvador Coma Scale Best Eye Response: 4 - Spontaneous Best Motor Response: 6 - Obeys Commands Best Verbal Response: 5 - Oriented Coma Scale Total: 15 Diagnostics - Vital Signs Vital Signs Temp Pulse Resp BP Pulse Ox 12/13/18 20:02 89 138/90 98 12/13/18 20:00 85 97 12/13/18 19:32 100 144/92 96 12/13/18 19:02 100 116/94 97 12/13/18 19:00 94 97 12/13/18 18:24 96.2 F 112 18 140/94 97 - Laboratory Lab Results: Lab Results 12/13/18 12/13/18 12/13/18 Range/Units 19:03 19:03 19:10 WBC 6.6 (3.5-10.8) 10^3/uL RBC 4.30 (4.18-5.48) 10^6 /uL Hgb 13.4 L (14.0-18.0) g/dL Hct 40 L (42-52) % MCV 93 (80-94) fL MCH 31 (27-31) pg MCHC 34 (31-36) g/dL RDW 16 H (10.5-15) % Plt Count 146 L (150-450) 10^3/uL MPV 11.8 H (7.4-10.4) fL Neut % (Auto) 82.5 % Lymph % (Auto) 8.9 % Scurry % (Auto) 7.6 % Eos % (Auto) 0.2 % Baso % (Auto) 0.8 % Absolute Neuts (auto) 5.4 (1.5-7.7) 10^3/ul Absolute Lymphs (auto) 0.6 L (1.0-4.8) 10^3/ul Absolute Monos (auto) 0.5 (0-0.8) 10^3/ul Absolute Eos (auto) 0.0 (0-0.6) 10^3/ul Absolute Basos (auto) 0.1 (0-0.2) 10^3/ul Absolute Nucleated RBC 0.0 10^3/ul Nucleated RBC % 0.1 Sodium 136 (135-145) mmol/L Potassium 3.4 L (3.5-5.0) mmol/L Chloride 107 (101-111) mmol/L Carbon Dioxide 22 (22-32) mmol/L Anion Gap 7 (2-11) mmol/L BUN 21 (6-24) mg/dL Creatinine 0.71 (0.67-1.17) mg/dL Est GFR ( Amer) 128.2 (>60) Est GFR (Non-Af Amer) 106.0 (>60) BUN/Creatinine Ratio 29.6 H (8-20) Glucose 157 H (70-100) mg/dL Calcium 9.5 (8.6-10.3) mg/dL Total Bilirubin 0.60 (0.2-1.0) mg/dL AST 20 (13-39) U/L ALT 15 (7-52) U/L Alkaline Phosphatase 69 (34-104) U/L C-Reactive Protein 5.58 (<8.01) mg/L Total Protein 7.1 (6.4-8.9) g/dL Albumin 3.6 (3.2-5.2) g/dL Globulin 3.5 (2-4) g/dL Albumin/Globulin Ratio 1.0 (1-3) Urine Color Yellow Urine Appearance Clear Urine pH 5.0 (5-9) Ur Specific Palmer 1.021 (1.010-1.030) Urine Protein Negative (Negative) Urine Ketones Negative (Negative) Urine Blood Negative (Negative) Urine Nitrate Negative (Negative) Urine Bilirubin Negative (Negative) Urine Urobilinogen Negative (Negative) Ur Leukocyte Esterase Negative (Negative) Urine Glucose Negative (Negative) Urine Ascorbic Acid * A (Negative) Result Diagrams: 12/13/18 19:03 12/13/18 19:03 Lab Statement: Any lab studies that have been ordered have been reviewed, and results considered in the medical decision making process. GIGU Course/Dx - Course Course Of Treatment: Patient complains of urinary retention 2 days with associated lower abdominal pain and nausea. Also complains of diarrhea since discharge from [facility] on 11/28/18. History of prior C. difficile infection. Patient was admitted for infection of the jaw, and received multiple antibiotics IV, also took 12 days of Augmentin by mouth after discharge. Patient states he did not finish last 2 days of Augmentin.. Patient also states history of prostate disease with history of urinary retention. Urologist . Denies fever, cough, sore throat, CP, SOB, N/V/D, blood in stool, penile or testicular symptoms. Mild tenderness to palpation suprapubically. Abdominal exam otherwise unremarkable. No peripheral edema. Lung sounds clear to auscultation bilaterally. RRR. Vital signs within normal limits. Labs did patient baseline. Indwelling catheter placed. Over 400 mL drained. Patient abdominal pain resolved with draining of the ladder. Patient could not provide a stool sample while here in the ED, and patient and family opted to follow-up with primary care for possible C. difficile infection. Discussed patient with Dr. Lomas who advised patient to follow up in clinic tomorrow morning at 8 AM. Patient and family understand and approve plan. - Diagnoses Provider Diagnoses: Urinary retention, Diarrhea Discharge - Sign-Out/Discharge Documenting (check all that apply): Patient Departure Patient Received Moderate/Deep Sedation with Procedure: No - Discharge Plan Condition: Stable Disposition: HOME Patient Education Materials: Urinary Retention in Men (ED), Coleman Catheter Placement and Care (ED) Referrals: Richard Peterson MD [Primary Care Provider] - Additional Instructions: Follow-up with urology Dr. Lomas tomorrow in clinic at 8 AM. Follow-up with primary care for evaluation of possible C. difficile infection. Return to the ED for any new or worsening symptoms. - Billing Disposition and Condition Condition: STABLE Disposition: Home
[2018-12-13 21:16] VITALS: BP 135/84
== END 2018-12-13 21:14 | disposition home or self-care (01) ==
LOC: ED 18:19
DX: R33.9 Retention of urine, unspecified (principal); R19.7 Diarrhea, unspecified; I50.9 Heart failure, unspecified; I11.0 Hypertensive heart disease with heart failure; E78.00 Pure hypercholesterolemia, unspecified; I73.9 Peripheral vascular disease, unspecified; R73.03 Prediabetes; I48.91 Unspecified atrial fibrillation; J44.9 Chronic obstructive pulmonary disease, unspecified; N40.0 Benign prostatic hyperplasia without lower urinary tract symptoms; Z95.810 Presence of automatic (implantable) cardiac defibrillator; Z85.828 Personal history of other malignant neoplasm of skin; Z85.819 Personal history of malignant neoplasm of unspecified site of lip, oral cavity, and pharynx; Z87.891 Personal history of nicotine dependence
CPT/HCPCS: 36415; 80053; 81003; 85025; 86140; 99283

== ENCOUNTER 2019-10-08 13:51 | Emergency (ER) | payer MEDICARE ==
[2019-10-08] MEDS ORDERED: NS 0.9% 1000 ML** 1,000 ML IV ONE ×2 (13:59→14:10)
--- NOTE | 2019-10-08 14:06 | ED ---
Abdominal Pain/Male - HPI Summary HPI Summary: This patient is an 84 year old male brought in by EMS presenting to [facility] with suprapubic pain. The patient states he was sick within the last week and feels he may be dehydrated. He states he urinated this morning but does not know if he actually did or not and wishes to have a catheter placed. His daughter called and states they would just like him to get fluids because he is in hospice at home. - History of Current Complaint Stated Complaint: LOWER ABD DISCOMFORT PER EMS Hx Obtained From: Patient Onset/Duration: Lasting Hours Location: Suprapubic - Allergies/Home Medications Allergies/Adverse Reactions: Allergies Allergy/AdvReac Type Severity Reaction Status Date / Time No Known Allergies Allergy Verified 12/13/18 20:18 Home Medications: Home Medications Allopurinol TAB* [Zyloprim 300 MG TAB*] 300 mg PO QAM 06/14/13 [History Confirmed 12/13/18] Albuterol/Ipratropium NEB.MEGA* [Duoneb (Albuterol 2.5 MG/Ipratropium 0.5 MG)] 1 neb INH QID PRN 01/10/16 [History Confirmed 12/13/18] Sotalol TAB* [Betapace 80 MG TAB*] 80 mg PO BID 01/10/16 [History Confirmed 02/24] Triamcinolone 0.1% CREAM(NF) [Kenalog Cream 0.1%(NF)] 1 applic TOPICAL BID 07/28 [History Confirmed 12/13/18] Apixaban* [Eliquis*] 5 mg PO BID 10/21/18 [History Confirmed 12/13/18] Lactose-Reduced Food [Nutritional Shake] 237 ml PO BID 10/21/18 [History Confirmed 12/13/18] Metoprolol Succinate XL TAB* [Toprol XL TAB*] 50 mg PO BID 10/21/18 [History Confirmed 12/13/18] Multivitamins/Minerals TAB* [Theragran/minerals TAB*] 1 tab PO DAILY 10/21/18 [ History Confirmed 12/13/18] Simvastatin TAB(NF) [Zocor 20 MG (NF)] 20 mg PO DAILY 10/21/18 [History Confirmed 12/13/18] Acetaminophen [Tylenol] 650 mg PO DAILY WITH MEAL 11/21/18 [History Confirmed ] Amoxicillin/Clavulanate TAB* [Augmentin TAB 875*] 875 mg PO BID 14 Days #28 tab 11/28/18 [Rx Confirmed 12/13/18] Loperamide CAP* [Imodium CAP*] 2 mg PO .SEE DIRECTIONS PRN cap 11/28/18 [Rx Confirmed 12/13/18] oxyCODONE/Acetamin 5/325 MG* [Percocet 5/325 TAB*] 1 tab PO Q8H PRN 5 Days #15 tab MDD 3 tabs 11/28/18 [Rx Confirmed 12/13/18] PMH/Surg Hx/FS Hx/Imm Hx Endocrine/Hematology History: Reports: 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 Cardiovascular History: Reports: Hx Auto Implanted Cardiovert Defib, Hx Cardiomegaly - SLIGHTLY ENLARGED, Hx Congestive Heart Failure, Hx Coronary Artery Disease, Hx Hypercholesterolemia, Hx Hypertension, Hx Pacemaker/ICD - ICD , Hx Peripheral Vascular Disease, Other Cardiovascular Problems/Disorders - 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, Hx SVT, paroxysmal A fib Respiratory History: Reports: Hx Chronic Obstructive Pulmonary Disease (COPD), Hx Sleep Apnea, Other Respiratory Problems/Disorders - COPD History: Reports: Hx Benign Prostatic Hyperplasia - TURP 06/08/16, Other Problems/Disorders - Hx Urinary retention Denies: Hx Dialysis, Hx Renal Disease Musculoskeletal History: Reports: Hx Arthritis - BILATERAL KNEES, Hx Scoliosis, Other Musculoskeletal History - CURVATURE OF BACK Sensory History: Reports: Hx Cataracts - BILATERAL- REMOVED, Hx Contacts or Glasses - at home, doesn't use them any more Denies: Hx Deafness, Hx Hearing Aid, Hx Hearing Problem Opthamlomology History: Reports: Hx Cataracts - BILATERAL- REMOVED, Hx Contacts or Glasses - at home, doesn't use them any more - Cancer History Cancer Type, Location and Year: Oral cancer- head and neck, Current. skin cancer Hx Chemotherapy: No - RADIATION Hx Radiation Therapy: Yes - Surgical History Surgery Procedure, Year, and Place: 05/2016 [place] [place] 01/2016 R Mandiblectomy. 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 2012 DEFIBRILLATOR INSERTED, [place]. 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 2010 LASER SURGER OF LEFT PALATE, OFFICE. SKIN CANCER BIOPSY RIGHT FOREARM, OFFICE. BIOPSY RIGHT LEG, OFFICE. DEPUTYRENS CONTRACTURE BILATERAL HANDS, [facility] AND [facility]. cholecystectomy, CATARACT SURGERY - [facility] Hx Anesthesia Reactions: No Infectious Disease History: Reports: Hx Shingles - 30 years ago - Family History Known Family History: Positive: Cardiac Disease, Hypertension, Diabetes - Social History Alcohol Use: None Alcohol Amount: did have 4 beers on Wednesday after 2 years dry Hx Substance Use: No Substance Use Type: Reports: None Hx Tobacco Use: Yes Smoking Status (MU): Former Smoker Have You Smoked in the Last Year: No Review of Systems Positive: Other - Dehydration Positive: Abdominal Pain - Suprapubic Positive: incontinence All Other Systems Reviewed And Are Negative: Yes Physical Exam - Summary Physical Exam Summary: VITAL SIGNS: Reviewed. GENERAL: Patient is a well-developed and nourished MALE who is lying comfortable in the stretcher. Patient is not in any acute respiratory distress. HEAD AND FACE: No signs of trauma. No ecchymosis, hematomas or skull depressions. No sinus tenderness. EYES: PERRLA, EOMI x 2, No injected conjunctiva, no nystagmus. EARS: Hearing grossly intact. Ear canals and tympanic membranes are within normal limits. MOUTH: Oropharynx within normal limits. NECK: Supple, trachea is midline, no adenopathy, no JVD, no carotid bruit, no c- spine tenderness, neck with full ROM. CHEST: Symmetric, no tenderness at palpation. LUNGS: Clear to auscultation bilaterally. No wheezing or crackles. CVS: Regular rate and rhythm, S1 and S2 present, no murmurs or gallops appreciated. ABDOMEN: Soft, non-tender. No signs of distention. No rebound, no guarding, and no masses palpated. Bowel sounds are normal. EXTREMITIES: FROM in all major joints, no edema, no cyanosis or clubbing. NEURO: Alert and oriented x 3. No acute neurological deficits. Speech is normal and follows commands. SKIN: Dry and warm. Triage Information Reviewed: Yes Vital Signs Reviewed: Yes Procedures - Sedation Patient Received Moderate/Deep Sedation with Procedure: No Abdominal Pain Male Course/Dx - Course Assessment/Plan: This patient is an 84 year old male brought in by EMS presenting to [facility] with suprapubic pain. The patient states he was sick within the last week and feels he may be dehydrated. He states he urinated this morning but does not know if he actually did or not and wishes to have a catheter placed. His daughter called and states they would just like him to get fluids because he is in hospice at home. 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 UA negative for UTI. As per patient request and patients daughter requests the patient was given only fluids for dehydration. They declined any other testing since the patient is in hospice care. The patient is alert and oriented 3 and was ready to be discharged. The patient is hemodynamically stable. - Diagnoses Provider Diagnoses: Dehydration Discharge ED - Sign-Out/Discharge Documenting (check all that apply): Patient Departure - Discharge - Discharge Plan Condition: Stable Disposition: HOME Patient Education Materials: Dehydration (ED) Referrals: Richard Peterson MD [Primary Care Provider] - Additional Instructions: Return to ED with new or worsening symptoms. - Billing Disposition and Condition Condition: STABLE Disposition: Home - Attestation Statements Document Initiated by [facility]: Yes Documenting Scribe: Kiran Urbano Provider For Whom Clover is Documenting (Include Credential): Roderick Ramos MD Scribe Attestation: Kiran Parry, scribed for Roderick Ramos MD on 10/08/19 at 2109. Scribe Documentation Reviewed: Yes Provider Attestation: The documentation as recorded by the Kiran fong accurately reflects the service I personally performed and the decisions made by me, Roderick Ramos MD Status of Scribe Document: Viewed
[2019-10-08 15:44] LABS: Urine Appearance Clear; Urine Bilirubin Negative (Negative); Urine Blood Negative (Negative); Urine Color Amber; Urine Glucose 1+(50 mg/dL) (Negative); Urine Ketones Negative (Negative); Urine Nitrite Negative (Negative); Urine Protein Negative (Negative); Urine Specific Gravity 1.028 (1.010-1.030); Urine Urobilinogen Negative (Negative)
[2019-10-08 16:23] VITALS: BP 133/76
== END 2019-10-08 16:22 | disposition home or self-care (01) ==
LOC: ED 13:51
DX: E86.0 Dehydration (principal); R73.03 Prediabetes; I10 Essential (primary) hypertension; E78.00 Pure hypercholesterolemia, unspecified; J44.9 Chronic obstructive pulmonary disease, unspecified; Z95.810 Presence of automatic (implantable) cardiac defibrillator; Z79.01 Long term (current) use of anticoagulants; Z79.899 Other long term (current) drug therapy; Z79.51 Long term (current) use of inhaled steroids; Z89.421 Acquired absence of other right toe(s); Z90.49 Acquired absence of other specified parts of digestive tract; Z87.891 Personal history of nicotine dependence
CPT/HCPCS: 81003; 96360; 96361; 99282

== ENCOUNTER 2020-02-28 03:42 | Inpatient (IN) ==
[2020-02-28] MEDS ORDERED: NS 0.9% 1000 ml BAG 1,000 ML IV ONE (03:58)
[2020-02-28 04:24] LABS: ABS Basophils 0.1 10^3/ul (0-0.2); ABS Lymphocytes 0.3 10^3/ul (1.0-4.8); ABS Monocytes 0.4 10^3/ul (0-0.8); Hematocrit 38 % (42-52); Hemoglobin 12.8 g/dL (14.0-18.0); Lymphocyte % 1.7 %; Mean Corpuscular HGB Conc 34 g/dL (31-36); Mean Corpuscular Hemoglobin 32 pg (27-31); Mean Corpuscular Volume 94 fL (80-94); Mean Platelet Volume 11.7 fL (7.4-10.4); Platelet Count 124 10^3/uL (150-450); Red Blood Count 4.05 10^6 /uL (4.18-5.48); Red Cell Distribution Width 16 % (10-15); White Blood Count 15.9 10^3/uL (3.5-10.8)
[2020-02-28 04:28] LABS: INR 2.23 (0.82-1.09)
[2020-02-28 04:38] LABS: ALT 22 U/L (7-52); AST 32 U/L (13-39); Albumin 3.2 g/dL (3.2-5.2); Albumin/Globulin Ratio 0.8 (1-3); Alkaline Phosphatase 79 U/L (34-104); Anion Gap 7 mmol/L (2-11); BUN/Creatinine Ratio 27.6 (8-20); Blood Urea Nitrogen 29 mg/dL (6-24); C Reactive Protein 49.09 mg/L (<8.01); CO2 Carbon Dioxide 24 mmol/L (22-32); Calcium 8.5 mg/dL (8.6-10.3); Chloride 102 mmol/L (101-111); EGFR African American 81.4 (>60); EGFR Non-African American 67.3 (>60); Glucose 139 mg/dL (70-100); Potassium 4.4 mmol/L (3.5-5.0); Sodium 133 mmol/L (135-145); Total Protein 7.2 g/dL (6.4-8.9)
[2020-02-28] MEDS ORDERED: Iodixanol (CONTRAST) 320 MG/ML 100 ML SDV IV ONE (04:42)
[2020-02-28 04:57] LABS: Magnesium 1.7 mg/dL (1.9-2.7)
[2020-02-28] MEDS ORDERED: Piperacillin/Tazobac ADVAN(*) 3.375 GM in NS 0.9% 100 ml BAG 100 ML IVPB ONE (05:06)
[2020-02-28] MEDS ORDERED: Albuterol/Ipratropium NEB.SOL (2.5/0.5 MG) 3 ML NEB.SOLN INH PRN (05:42)
[2020-02-28] MEDS ORDERED: Lidocaine 2% JELLY 10 ML JELLY TOPICAL ONE (05:43)
[2020-02-28 05:50] LABS: Troponin I 0.03 ng/mL (<0.03)
[2020-02-28] MEDS ORDERED: Morphine 2 MG/ML SYRINGE IV PRN (05:58)
[2020-02-28] MEDS ORDERED: Ondansetron 4 mg VIAL 2 MG/ML 2 ml VIAL IV PRN (06:47)
[2020-02-28] MEDS: NS 0.9% 1000 ml BAG 1,000 ML IV SCH ×2 (09:01→21:05)
[2020-02-28] MEDS: Piperacillin/Tazobac ADVAN(*) 3.375 GM in NS 0.9% 100 ml BAG 100 ML IV SCH ×2 (11:17→17:20)
[2020-02-28] MEDS ORDERED: fentaNYL 100 mcg/2 ml 50 MCG/ML VIAL ONE (14:04)
[2020-02-28] MEDS ORDERED: Midazolam 10 mg/10 ml VIAL 1 mg/ml 10 ml VIAL (10 mg) ONE (14:04)
[2020-02-28] MEDS ORDERED: Sodium Phosphate ADULT ENEMA 133 ML BTL ONE (14:54)
[2020-02-28] MEDS ORDERED: Piperacillin/Tazobac ADVAN(*) 3.375 GM in NS 0.9% 100 ml BAG 100 ML IV SCH (18:00)
[2020-02-29] MEDS: Piperacillin/Tazobac ADVAN(*) 3.375 GM in NS 0.9% 100 ml BAG 100 ML IV SCH ×3 (02:01→17:43)
[2020-02-29 05:01] LABS: Urine Appearance Clear; Urine Bilirubin Negative (Negative); Urine Blood Negative (Negative); Urine Color Yellow; Urine Glucose Negative (Negative); Urine Ketones Negative (Negative); Urine Nitrite Negative (Negative); Urine Protein Negative (Negative); Urine Specific Gravity 1.049 (1.010-1.030); Urine Urobilinogen Negative (Negative)
[2020-02-29] MEDS: NS 0.9% 1000 ml BAG 1,000 ML IV SCH ×3 (05:21→17:44)
[2020-02-29 08:34] LABS: Hematocrit 35 % (42-52); Hemoglobin 11.8 g/dL (14.0-18.0); Mean Corpuscular HGB Conc 34 g/dL (31-36); Mean Corpuscular Hemoglobin 33 pg (27-31); Mean Corpuscular Volume 97 fL (80-94); Mean Platelet Volume 11.4 fL (7.4-10.4); Platelet Count 81 10^3/uL (150-450); Red Blood Count 3.61 10^6 /uL (4.18-5.48); Red Cell Distribution Width 16 % (10-15); White Blood Count 6.5 10^3/uL (3.5-10.8)
[2020-02-29 08:35] LABS: ABS Lymphocytes 0.5 10^3/ul (1.0-4.8); ABS Monocytes 0.8 10^3/ul (0-0.8); Eosinophil % 0.6 %; Nucleated Red Blood Cells % 0.1
[2020-02-29 09:01] LABS: BUN/Creatinine Ratio 28.6 (8-20); Blood Urea Nitrogen 24 mg/dL (6-24); CO2 Carbon Dioxide 21 mmol/L (22-32); Calcium 7.4 mg/dL (8.6-10.3); EGFR African American 105.3 (>60); EGFR Non-African American 87.1 (>60); Glucose 74 mg/dL (70-100); Sodium 139 mmol/L (135-145)
[2020-02-29 09:22] LABS: Chloride 112 mmol/L (101-111)
[2020-02-29 09:49] LABS: Anion Gap 6 mmol/L (2-11)
[2020-03-01] MEDS: Piperacillin/Tazobac ADVAN(*) 3.375 GM in NS 0.9% 100 ml BAG 100 ML IV SCH ×2 (02:20→10:24)
[2020-03-01] MEDS: NS 0.9% 1000 ml BAG 1,000 ML IV SCH (05:48)
[2020-03-01 07:25] LABS: ABS Lymphocytes 0.4 10^3/ul (1.0-4.8); ABS Monocytes 0.4 10^3/ul (0-0.8); Eosinophil % 0.9 %; Hematocrit 31 % (42-52); Hemoglobin 10.6 g/dL (14.0-18.0); Lymphocyte % 7.3 %; Mean Corpuscular HGB Conc 34 g/dL (31-36); Mean Corpuscular Hemoglobin 32 pg (27-31); Mean Corpuscular Volume 95 fL (80-94); Mean Platelet Volume 11.1 fL (7.4-10.4); Platelet Count 104 10^3/uL (150-450); Red Blood Count 3.28 10^6 /uL (4.18-5.48); Red Cell Distribution Width 15 % (10-15); White Blood Count 5.1 10^3/uL (3.5-10.8)
[2020-03-01 07:36] LABS: BUN/Creatinine Ratio 33.3 (8-20); Calcium 7.7 mg/dL (8.6-10.3); EGFR African American 120.1 (>60); EGFR Non-African American 99.2 (>60); Potassium 3.8 mmol/L (3.5-5.0)
[2020-03-01] MEDS ORDERED: SIMVASTATIN 20 MG PO SCH (09:00)
[2020-03-01 15:16] LABS: Body Fluid Source Pleural Fluid
[2020-03-01 16:28] LABS: Body Fluid Mono 18 %; Body Fluid Other Cells 6
[2020-03-01 17:45] VITALS: BP 127/61
[2020-03-02 20:31] LABS: Fluid Type, Glucose PLEURAL; Fluid Type, Protein, Total PLEURAL
[2020-03-04 12:46] LABS: Lactate Dehydrogenase, BF 122 U/L
== END 2020-03-01 18:12 | disposition home health service (06) | DRG 388 ==
LOC: ED 03:42 → MEDTELE 07:10
PROVIDERS: ADMIT Internal Medicine; ATTEND Internal Medicine

== ENCOUNTER 2020-03-07 15:41 | Inpatient (IN) ==
[2020-03-07] MEDS ORDERED: POTASSIUM ACETATE IV ONE (16:10)
[2020-03-07] MEDS ORDERED: NS 0.9% 1000 ml BAG 1,000 ML IV ONE (16:10)
[2020-03-07] MEDS ORDERED: NS 0.9% IV ONE (16:10)
[2020-03-07 16:40] LABS: Hematocrit 37 % (42-52); Hemoglobin 12.4 g/dL (14.0-18.0); Mean Corpuscular HGB Conc 34 g/dL (31-36); Mean Corpuscular Hemoglobin 32 pg (27-31); Mean Corpuscular Volume 94 fL (80-94); Platelet Count 147 10^3/uL (150-450); Red Blood Count 3.88 10^6 /uL (4.18-5.48); Red Cell Distribution Width 15 % (10-15); White Blood Count 5.8 10^3/uL (3.5-10.8)
[2020-03-07 16:54] LABS: Troponin I 0.01 ng/mL (<0.03)
[2020-03-07 16:55] LABS: ALT 22 U/L (7-52); Albumin 3.1 g/dL (3.2-5.2); Albumin/Globulin Ratio 0.8 (1-3); Alkaline Phosphatase 60 U/L (34-104); BUN/Creatinine Ratio 31.6 (8-20); Blood Urea Nitrogen 24 mg/dL (6-24); CO2 Carbon Dioxide 20 mmol/L (22-32); Calcium 8.7 mg/dL (8.6-10.3); Chloride 109 mmol/L (101-111); EGFR African American 118.2 (>60); EGFR Non-African American 97.7 (>60); Globulin 3.8 g/dL (2-4); Glucose 78 mg/dL (70-100); Sodium 137 mmol/L (135-145); Total Protein 6.9 g/dL (6.4-8.9)
[2020-03-07 17:00] LABS: Anion Gap 8 mmol/L (2-11)
[2020-03-07 17:01] LABS: ABS Lymphocytes 0.7 10^3/ul (1.0-4.8); ABS Monocytes 0.5 10^3/ul (0-0.8); Eosinophil % 0.6 %; Lymphocyte % 11.4 %; Nucleated Red Blood Cells % 0.1
[2020-03-07 17:20] LABS: TSH (Thyroid Stimulating Horm) 3.95 mcIU/mL (0.34-5.60)
[2020-03-07 18:01] LABS: Digoxin 0.8 ng/ml (0.8-2.0)
[2020-03-07 18:15] LABS: Magnesium 1.2 mg/dL (1.9-2.7); Potassium Redraw 2.9 mmol/L (3.5-5.0)
[2020-03-07] MEDS ORDERED: Magnesium Sulfate 2 gm BAG 2 GM/50 ML BAG IVPB ONE ×2 (18:27→18:54)
[2020-03-07] MEDS ORDERED: Potassium Chloride LIQUID 20 MEQ/15 ML LIQUID PO ONE (18:54)
[2020-03-07 19:04] LABS: Urine Appearance Cloudy; Urine Bilirubin Negative (Negative); Urine Blood Negative (Negative); Urine Color Yellow; Urine Glucose Negative (Negative); Urine Ketones Trace (Negative); Urine Nitrite Negative (Negative); Urine Protein Negative (Negative); Urine Specific Gravity 1.026 (1.010-1.030); Urine Urobilinogen Negative (Negative)
[2020-03-07] MEDS ORDERED: NS 0.9% 1000 ml BAG 1,000 ML IV SCH (21:00)
[2020-03-07] MEDS ORDERED: Albuterol/Ipratropium NEB.SOL (2.5/0.5 MG) 3 ML NEB.SOLN INH PRN (21:22)
[2020-03-07] MEDS ORDERED: cefTRIAXone 1 gm/50 mL NS BAG 1 GM/50 ML BAG IVPB SCH (21:24)
[2020-03-07] MEDS ORDERED: Ondansetron 4 mg VIAL 2 MG/ML 2 ml VIAL IV PRN (21:25)
[2020-03-08] MEDS ORDERED: NS 0.9% w/ 40 Meq KCL 1000 ML 1,000 ML IV SCH (01:30)
[2020-03-08 05:25] LABS: Hematocrit 32 % (42-52); Hemoglobin 11.2 g/dL (14.0-18.0); Mean Corpuscular HGB Conc 35 g/dL (31-36); Mean Corpuscular Hemoglobin 32 pg (27-31); Mean Corpuscular Volume 93 fL (80-94); Mean Platelet Volume 10.6 fL (7.4-10.4); Platelet Count 122 10^3/uL (150-450); Red Blood Count 3.48 10^6 /uL (4.18-5.48); Red Cell Distribution Width 15 % (10-15); White Blood Count 5.1 10^3/uL (3.5-10.8)
[2020-03-08 05:40] LABS: Calcium 7.9 mg/dL (8.6-10.3); Potassium 4.4 mmol/L (3.5-5.0)
[2020-03-08 05:46] LABS: BUN/Creatinine Ratio 32.8 (8-20); EGFR African American 144.2 (>60); EGFR Non-African American 119.1 (>60)
[2020-03-08 06:18] LABS: ABS Basophils 0.1 10^3/ul (0-0.2); ABS Lymphocytes 0.7 10^3/ul (1.0-4.8); ABS Monocytes 0.4 10^3/ul (0-0.8); Eosinophil % 0.8 %; Lymphocyte % 13.1 %
[2020-03-08] MEDS: Multivitamins/Minerals TAB PO SCH ×2 (10:47→11:30)
[2020-03-09 06:15] LABS: Hematocrit 32 % (42-52); Hemoglobin 10.9 g/dL (14.0-18.0); Mean Corpuscular HGB Conc 34 g/dL (31-36); Mean Corpuscular Hemoglobin 32 pg (27-31); Mean Corpuscular Volume 94 fL (80-94); Mean Platelet Volume 11.7 fL (7.4-10.4); Platelet Count 118 10^3/uL (150-450); Red Blood Count 3.36 10^6 /uL (4.18-5.48); Red Cell Distribution Width 15 % (10-15); White Blood Count 3.5 10^3/uL (3.5-10.8)
[2020-03-09 06:30] LABS: EGFR African American 120.1 (>60); EGFR Non-African American 99.2 (>60); Magnesium 1.8 mg/dL (1.9-2.7); Potassium 4.1 mmol/L (3.5-5.0)
[2020-03-09] MEDS ORDERED: Magnesium Sulfate 2 gm BAG 2 GM/50 ML BAG IVPB ONE (06:59)
[2020-03-09] MEDS: Multivitamins/Minerals TAB PO SCH (08:52)
[2020-03-09 15:49] VITALS: BP 116/60
[2020-03-09] MEDS ORDERED: Glycerin ADULT 2.4 gm SUPP PR PRN (15:51)
== END 2020-03-09 16:52 | disposition home or self-care (01) | DRG 388 ==
LOC: ED 15:41 → MEDTELE 21:00
PROVIDERS: ADMIT Internal Medicine; ATTEND Internal Medicine